=== PATIENT | male | born 1995 | race Caucasian/White ===

== ENCOUNTER 2022-04-06 20:40 | Emergency (ER) | payer OTHER, SELFPAY ==
[2022-04-06 20:41] VITALS: BP 109/81; PULSE 95; RESP 18; TEMP 36.6; O2SAT 98; BMI 28.7
--- NOTE | 2022-04-06 22:59 | CT_ITS ---
STUDY: CT PELVIS WITH CONTRAST REASON FOR EXAM: Male, 26 years old. perianal/rectal pain, eval abscess RADIATION DOSAGE (If Supplied By Facility): CTDIvol = ( 28.21 ) mGy, DLP = ( 1032.15 ) mGycm TECHNIQUE: Transaxial imaging of the pelvis was performed without oral contrast. IV 100mL Isovue-370 was administered intravenously. Individualized dose optimization techniques were used for this CT. COMPARISON: None. FINDINGS: Normal urinary bladder. Normal visualized small intestine. There is a small area of decreased attenuation measuring 0.9 x 1.2 cm in the right perianal region at the level of the external sphincter may represent an abscess. There is no pelvic fluid. There is no pelvic lymphadenopathy or mass lesion. Normal visualized pelvic arteries. Normal abdominal wall. Normal osseous structures. CT/Pelvis WITH IV Contrast IMPRESSION: There is a small area of decreased attenuation measuring 0.9 x 1.2 cm in the right perianal region at the level of the external sphincter may represent an abscess. Electronically Signed: Millie Galvez MD at 0:09 EDT ,
[2022-04-06] MEDS: Clindamycin 600 MG/50 ML BAG 100 MG IV (23:18)
[2022-04-06 23:35] LABS: Anion Gap 6 (5-15); BUN 22 mg/dL (7-18); Calcium,Total 8.8 mg/dL (8.5-10.1); Chloride 105 mmol/L (98-107); Creatinine, Serum 0.84 mg/dL (0.70-1.30); EST Glomerular Filtration Rate 118 mL/min (>60); Est Glom Filt Rate - Afr Amer 142 mL/min (>60); Estimated Creatinine Clearance 140.01 ml/min; Glucose 89 mg/dL (74-106); Potassium 4.2 mmol/L (3.5-5.1); Sodium Level 138 mmol/L (136-145)
[2022-04-06 23:43] LABS: Absolute Lymphocyte Count 1.28 X10^3/uL (0.83-4.51); Absolute Neutrophil Count 4.5 X10^3/uL (2.0-7.7); Basophil# 0.01 X10^3/uL; Basophil% 0.2 % (0-1); Hematocrit 42.5 % (40-54); Hemoglobin 14.6 g/dL (13.0-16.5); Lymphocyte # 1.28 X10^3/ul (0.83-4.51); Lymphocyte % 19.8 % (19-41); Mean Corp Hgb Conc 34.4 g/dL (32-36); Mean Corpuscular Hgb 28.9 pg (27.0-32.0); Mean Platelet Vol. 9.1 fl (6.2-12.0); Monocyte# 0.68 X10^3/uL; Monocyte% 10.5 % (0-10); NRBC Flagged by Analyzer 0 % (0-5); Neutrophil # 4.45 X10^3/uL (2.7-7.7); Neutrophil % 68.6 % (47-70); POSITIVE MORPHOLOGY YES; Platelet Count 217 K/mm3 (150-450); RBC Distribution Width CV 12.4 % (11.6-14.6); RBC Distribution Width SD 37.6 fl (35.1-43.9); Red Blood Count 5.06 M/mm3 (4.6-6.2); White Blood Count 6.5 K/mm3 (4.4-11.0)
[2022-04-06 23:50] LABS: Differential Indicated SCAN CRITERIA MET
[2022-04-07 00:05] LABS: Atypical Lymphocyte 2+ %; Differential Comment SCANNED
--- NOTE | 2022-04-07 00:41 | EX.ED.DYSGE1 ---
HPI History of Present Illness Chief Complaint: Other, Pain/Inj Informant: patient Onset/Context/Timing Onset: Weeks (1) Context: Gradual Onset Timing: Continuous Quality: pain Location: anus/rectum Current Severity: Moderate Maximum Severity: Severe Worsened by: bowel movement Relieved by: nothing Associated Symptoms Associated Symptoms: minor bleeding, mostly w/ BMs Narrative Narrative: 1 weeks were the spontaneous gradual onset of anal pain that has been worsening. States he went to a walk-in clinic and was told he had a hemorrhoid. States pain feels like it is worse. He and his significant other had COVID around 2 months ago and he mostly recovered from that but no other recent illness. Never had this before. No recent constipation or straining, he does lifting at work but nothing crazy heavy. He denies any abdominal pain. He admits he has been having some other discharge from this area that looks mucousy. PFSH PFSH Medical History no medical history no medical history Home Medications amoxicillin 875 mg-potassium clavulanate 125 mg tablet 875 mg PO Q12H #20 TABLETS 04/07/22 [Rx Last Taken Unknown] Allergy/AdvReac Type Severity Reaction Status Date / Time No Known Allergies Allergy Verified 04/06/22 20:43 Social History Smoking Status: Never smoker ROS ROS ED Constitutional Constitutional ED: Denies chills or fever(s) Eyes Eyes: Denies change in vision or diplopia ENT ENT ED: Denies rhinorrhea or sore throat Cardiovascular Cardiovascular: Denies chest pain or palpitations Respiratory/Chest Respiratory/Chest: Denies cough or dyspnea Gastrointestinal Gastrointestinal: Reports as per HPI, hematochezia and other Details: Rectal/anal pain ; Denies abdominal pain, diarrhea, nausea or vomiting Genitourinary Genitourinary ED: Denies dysuria or hematuria Musculoskeletal Musculoskeletal: Denies back pain or neck pain Integumentary Denies abscess or rash Neurologic Neurologic: Denies headache(s), paresthesias or weakness Psychiatric Psychiatric: Denies anxiety or suicidal thoughts EXAM Physical Exam Const Vital Signs: 04/06/22 20:41 04/06/22 22:34 Temperature 97.9 F Temperature Source Temporal Pulse Rate 95 Respiratory Rate 18 Respiratory Effort Normal Non-Labored Blood Pressure 109/81 H Blood Pressure Mean 90 Pulse Ox 98 Oxygen Delivery Method Room Air Positive well nourished and well developed General Appearance ED: well developed and NAD HEENT Reports moist mucous membranes normocephalic and atraumatic Eyes PERRL and EOMs intact bilaterally Neck full ROM and supple Resp normal respiratory effort and clear to auscultation bilaterally Cardio regular rate, regular rhythm and no murmurs GI non-tender and non-distended GI Narrative: On rectal exam, patient has a very tender area that feels like a small perianal abscess at the 3 O'clock side. There is no expressible discharge, there is white-cream that the patient states is Preparation H over the perianal area. There is not appear to be any surrounding cellulitis. Auscultation: normoactive bowel sounds Palpation: soft Back/Spine no CVA tenderness General Back: other FROM Extremity normal to inspection General Extremety ED: Negative for edema, pulses abnormal or tenderness General Extremity: Negative for edema or pulses abnormal Neuro oriented x3, CN's II-XII intact bilaterally and no sensory deficits noted Sensorium / Orientation: awake and alert Motor Exam: strength 5/5 throughout Skin no rashes or lesions noted and no wounds MDM MDM MDM Narrative Medical decision making narrative: I obtained labs and an IV contrasted CT pelvis in order to further evaluate whether this was a simple perianal abscess or involved more proximal tissues. It is consistent with a perianal abscess on CT. Therefore this is amenable to incision and drainage here in the ED by myself, prior to receiving the results of the CT I had the patient get clindamycin 600 mg IV as well as some fluids to flush the contrast. Patient was amenable to the procedure which was done see the note, however was not able to obtain any purulent material call patient was in too much pain to continue, clenching and limiting further drainage. Simple gauze dressing was placed. My plan is to treat him as an outpatient with clindamycin and sitz baths and have him follow-up with surgery if it does not improve. I discussed with Dr. Rodriguez. He is in agreement with this, recommends Augmentin instead of clindamycin, and advises that the patient call the office in the morning, Sunday, to be seen in the office regardless of improvement on Sunday for reevaluation. Lab Data Attestation: I reviewed the patient's lab results. Labs: Laboratory Results - last 24 hr 04/06/22 04/06/22 23:15 23:15 WBC 6.5 RBC 5.06 Hgb 14.6 Hct 42.5 MCV 84.0 MCH 28.9 MCHC 34.4 RDW Std Deviation 37.6 RDW Coeff of Sheryl 12.4 Plt Count 217 MPV 9.1 Immature Gran % (Auto) 0.900 Neut % (Auto) 68.6 Lymph % (Auto) 19.8 [place] % (Auto) 10.5 H Eos % (Auto) 0.0 Baso % (Auto) 0.2 Absolute Neuts (auto) 4.5 Absolute Lymphs (auto) 1.28 Nucleated RBC % 0 Differential Comment SCANNED Diff Path Review May foll Atypical Lymphocytes 2+ Sodium 138 Potassium 4.2 Chloride 105 Carbon Dioxide 27.0 Anion Gap 6 BUN 22 H Creatinine 0.84 Estim Creat Clear Calc 140.01 Est GFR (MDRD) Af Amer 142 Est GFR (MDRD) Non-Af 118 BUN/Creatinine Ratio 26.0 H Glucose 89 Calcium 8.8 Radiography Diagnostic Testing: Clinical Impression(s) from Imaging Studies Pelvis CT 04/06/22 22:59 IMPRESSION: There is a small area of decreased attenuation measuring 0.9 x 1.2 cm in the right perianal region at the level of the external sphincter may represent an abscess. Electronically Signed: Millie Galvez MD at 0:09 EDT , Procedures Other Procedures Procedure(s): Incision and drainage perianal abscess: After informed consent, patient was prepped and draped in a sterile fashion with chlorhexidine, locally anesthetized without aspirating blood, air, or purulent material beforehand with 4 cc plain 1% lidocaine around the tender area right perianal. Verified tender nodular area after anesthetizing, made a small longitudinal incision with a #11 blade, probed bluntly with hemostats unsuccessfully, followed by scissors with no purulent discharge, small amount of bleeding, patient was in pain but otherwise tolerated well and no complications or rectal/anal bleeding. Discharge Plan Triage Chief Complaint: Other, Pain/Inj ED Provider: Keyon Yost Dx/Rx/DC Orders Clinical Impression: Abscess, perianal Instructions: Taking a Sitz Bath, ED ABSCESS Coby-Anal IandD Prescriptions: New amoxicillin-pot clavulanate [amoxicillin-pot clavulanate] 875-125 mg tablet 875 mg PO Q12H Qty: 20 0RF Primary Care Provider: Care Physician,No Primary Referrals: Bladimir Rodriguez MD [Med Staff - Active Staff] - 3-5 Days if not improving Care Physician,No Primary [Primary Care Provider] - Disposition Disposition: Home, Self Care
[2022-04-07] MEDS: Amox/Clavulanate 875 MG Tablet PO (01:52)
[2022-04-07] MEDS: Lidocaine 1% (20 ml mdv) 20 ML Vial INFILT (01:53)
[2022-04-07 01:56] VITALS: BP 136/89; PULSE 72; RESP 18; O2SAT 100
[2022-04-07 12:45] LABS: Pathologist Review Reviewed
== END 2022-04-07 01:57 | disposition home or self-care (01) ==
PROVIDERS: Emergency Provider Emergency Medicine; Visit Provider Emergency Medicine
DX: K61.0 Anal abscess (principal)
CPT/HCPCS: 10060; 72193; 80048; 85025; 96365; 99284; J7030; Q9967; A4216

== ENCOUNTER 2022-04-14 19:42 | Emergency (ER) | payer OTHER, SELFPAY ==
[2022-04-14 19:45] VITALS: BP 121/85; PULSE 126; RESP 18; TEMP 36.9; O2SAT 97; BMI 27.6
[2022-04-14 19:48] VITALS: BP 121/85; PULSE 126; RESP 18; TEMP 36.9; O2SAT 97
[2022-04-14] MEDS: 0.9% Normal Saline 1,000 ML 1000 ML IV (20:35)
[2022-04-14] MEDS: DiphenhydrAMINE 50 MG/ML Syringe IV (20:36)
[2022-04-14 20:44] LABS: Absolute Lymphocyte Count 2.68 X10^3/uL (0.83-4.51); Absolute Neutrophil Count 6.3 X10^3/uL (2.0-7.7); Basophil# 0.02 X10^3/uL; Basophil% 0.2 % (0-1); Hematocrit 42.3 % (40-54); Hemoglobin 14.4 g/dL (13.0-16.5); Lymphocyte # 2.68 X10^3/ul (0.83-4.51); Lymphocyte % 28.2 % (19-41); Mean Corpuscular Hgb 27.9 pg (27.0-32.0); Mean Platelet Vol. 9.4 fl (6.2-12.0); Monocyte# 0.46 X10^3/uL; Monocyte% 4.8 % (0-10); NRBC Flagged by Analyzer 0 % (0-5); Neutrophil # 6.28 X10^3/uL (2.7-7.7); Neutrophil % 66.3 % (47-70); POSITIVE MORPHOLOGY YES; Platelet Count 311 K/mm3 (150-450); RBC Distribution Width CV 12.5 % (11.6-14.6); RBC Distribution Width SD 37.8 fl (35.1-43.9); Red Blood Count 5.16 M/mm3 (4.6-6.2); White Blood Count 9.5 K/mm3 (4.4-11.0)
[2022-04-14 20:48] LABS: Differential Indicated SCAN CRITERIA MET
[2022-04-14 21:01] LABS: Anion Gap 10 (5-15); BUN 17 mg/dL (7-18); BUN/Creat Ratio 22.2 RATIO (10-20); Calcium,Total 8.6 mg/dL (8.5-10.1); Chloride 101 mmol/L (98-107); Creatinine, Serum 0.77 mg/dL (0.70-1.30); EST Glomerular Filtration Rate 132 mL/min (>60); Est Glom Filt Rate - Afr Amer 159 mL/min (>60); Estimated Creatinine Clearance 152.74 ml/min; Glucose 126 mg/dL (74-106); Potassium 3.6 mmol/L (3.5-5.1); Sodium Level 136 mmol/L (136-145)
--- NOTE | 2022-04-14 21:04 | EX.ED.DYSGE1 ---
HPI History of Present Illness Chief Complaint: Allergic Reaction Informant: patient and spouse/S.O. Narrative Narrative: He was seen in other concerns for allergic reaction to Augmentin. Seen 8 days ago for perianal abscess was drained in the ED. He follow-up with surgery today states that is improving. He had some diarrhea. However no diffuse rash in his abdomen and arms over the last 2 days. No lip or tongue swelling. He had an emesis leaving office today. Went home had another 1. Current denies any nausea. Percent other increasing fevers throughout. No urinary symptoms no cough. Denies abdominal pain. States anal pain is improving. Prior similar symptoms: No PFSH PFSH Medical History Perianal abscess Home Medications amoxicillin 875 mg-potassium clavulanate 125 mg tablet tab 04/14/22 [History Last Taken Unknown] clindamycin HCl 150 mg capsule mg 04/14/22 [History Last Taken Unknown] ondansetron 4 mg disintegrating tablet 4 mg PO Q6H PRN nausea and vomiting #10 tabs 04/14/22 [Rx Last Taken Unknown] Allergy/AdvReac Type Severity Reaction Status Date / Time amoxicillin [From Augmentin] AdvReac Rash, Verified 04/14/22 15:50 Diarrhea, Mentally foggy clavulanic acid AdvReac Rash, Verified 04/14/22 15:50 [From Augmentin] Diarrhea, Mentally foggy Social History Smoking Status: Never smoker substance use type: does not use ROS ROS ED Constitutional Constitutional ED: Reports fever(s); Denies chills or sweats Eyes Eyes: Denies change in vision ENT ENT ED: Denies dysphagia or sore throat Cardiovascular Cardiovascular: Denies chest pain, leg edema, palpitations or racing heartbeat Respiratory/Chest Respiratory/Chest: Denies cough, dyspnea or dyspnea on exertion Gastrointestinal Gastrointestinal: Denies abdominal pain, diarrhea, nausea or vomiting Genitourinary Genitourinary ED: Denies dysuria, hematuria or urinary frequency Musculoskeletal Musculoskeletal: Denies back pain, extremity pain or neck pain Integumentary Reports rash; Denies wounds Neurologic Neurologic: Denies headache(s), paresthesias or weakness EXAM Physical Exam Const Vital Signs: 04/14/22 19:45 04/14/22 19:48 04/14/22 21:57 Temperature 98.5 F 98.5 F Temperature Source Oral Oral Pulse Rate 126 H 126 H 76 Respiratory Rate 18 18 17 Blood Pressure 121/85 H 121/85 H Blood Pressure Mean 97 97 Pulse Ox 97 97 98 Oxygen Delivery Method Room Air Room Air Positive well nourished and well developed General Appearance ED: well developed and NAD HEENT Reports moist mucous membranes HEENT Narrative: No lip or tongue swelling airway patent. No stridor. normocephalic and atraumatic Eyes PERRL, EOMs intact bilaterally and conjunctivae normal General Eye ED: Yes normal appearance of both eyes Neck no lymphadenopathy and supple General: Negative for tenderness Chest Wall Chest: Negative for tenderness Resp normal respiratory effort and normal air movement Effort and Inspection: symmetric chest movement; Negative for respiratory distress Cardio regular rate, regular rhythm and no murmurs Peripheral Pulses: pulses 2+ throughout GI normal to inspection, nondistended, normoactive bowel sounds and non-tender Palpation: Negative for guarding or rebound tenderness present Back/Spine no CVA tenderness and no thoracic nor lumbar tenderness Extremity normal to inspection General Extremety ED: Negative for edema or tenderness General Extremity: Negative for edema Neuro oriented x3 and no sensory deficits noted Sensorium / Orientation: awake and alert Skin Skin Narrative: Diffuse rash torso bilateral arms nonraised. No drainage. Nontender. No oral lesions. MDM MDM MDM Narrative Medical decision making narrative: .Patient tachycardic in triage. Reported pruritic rash generalized. No respiratory complaints. Spouse concerns for fevers. He had a heart rate 84 during my exam. There are concerns for dehydration. Labs were drawn given IV fluids given Benadryl for pruritic symptoms. Labs are all normal and monitor remained stable. Discussed stopping antibiotic as he is already on 7 days of treatment should be adequate. He will continue Benadryl as needed prescription for Zofran to his pharmacy use as needed. Heart rate improved with fluids. Outpatient follow-up. All questions were answered. Lab Data Attestation: I reviewed the patient's lab results. Labs: Laboratory Results - last 24 hr 04/14/22 04/14/22 20:37 20:37 WBC 9.5 RBC 5.16 Hgb 14.4 Hct 42.3 MCV 82.0 MCH 27.9 MCHC 34.0 RDW Std Deviation 37.8 RDW Coeff of Sheryl 12.5 Plt Count 311 MPV 9.4 Immature Gran % (Auto) 0.500 Neut % (Auto) 66.3 Lymph % (Auto) 28.2 [place] % (Auto) 4.8 Eos % (Auto) 0.0 Baso % (Auto) 0.2 Absolute Neuts (auto) 6.3 Absolute Lymphs (auto) 2.68 Nucleated RBC % 0 Differential Comment SCANNED Atypical Lymphocytes RARE Sodium 136 Potassium 3.6 Chloride 101 Carbon Dioxide 25.0 Anion Gap 10 BUN 17 Creatinine 0.77 Estim Creat Clear Calc 152.74 Est GFR (MDRD) Af Amer 159 Est GFR (MDRD) Non-Af 132 BUN/Creatinine Ratio 22.2 H Glucose 126 H Calcium 8.6 Discharge Plan Triage Chief Complaint: Allergic Reaction ED Provider: Gilmar Velasco Dx/Rx/DC Orders Clinical Impression: Allergic drug rash, Vomiting, Tachycardia Instructions: ED ADVERSE DRUG REACTION Allergic, ED Vomiting (Adult) Prescriptions: New ondansetron 4 mg tablet,disintegrating 4 mg PO Q6H PRN (Reason: nausea and vomiting) Qty: 10 0RF No Action clindamycin HCl 150 mg capsule amoxicillin-pot clavulanate 875-125 mg tablet Primary Care Provider: Care Physician,No Primary Referrals: Keisha Swift MD [Med Staff - Transformation Consultant] - 1-2 Weeks Care Physician,No Primary [Primary Care Provider] - Activity Restrictions/Additional Instructions: Stop the Augmentin. You been treated for 7 days should be adequate. Continue Benadryl 25 to 50 mg every 6 hours as needed. Disposition Disposition: Home, Self Care Discharge Date/Time: 04/14/22 22:01
[2022-04-14 21:16] LABS: Differential Comment SCANNED
[2022-04-14 21:17] LABS: Atypical Lymphocyte RARE %
[2022-04-14 21:57] VITALS: PULSE 76; RESP 17; O2SAT 98
== END 2022-04-14 22:01 | disposition home or self-care (01) ==
PROVIDERS: Emergency Provider Emergency Medicine; Visit Provider Emergency Medicine
DX: R11.10 Vomiting, unspecified (principal); T36.0X5A Adverse effect of penicillins, initial encounter; R00.0 Tachycardia, unspecified
CPT/HCPCS: 80048; 85025; 96374; 99283; J7030; A4216

== ENCOUNTER 2022-04-23 12:21 | Observation (INO) | payer OTHER, SELFPAY ==
[2022-04-23] VITALS (13 sets, daily range): BP systolic 132–148; BP diastolic 76–125; PULSE 121–156; RESP 12–25; TEMP 36.4–37.1; O2SAT 97–100; BMI 26.2; BMI 26.1
--- NOTE | 2022-04-23 13:39 | ED.RN ---
pt with no real defined problem. reports feeling 'really hot when exert self. unable to do any physical thing or gets hot and sweats and has fever spikes but unsure if corrilated and unable to say if happening at same time each day or evening. was at f/u with surgeon for post abcess drzoya and was all healed up from that but havent been same. unable to work, looking to aunt to answer questions for him. avoids eye contact. figets with hands and looks down. mild sore throat reported. wt loss of 30lbs last month. per aunt supposed to be getting in 8 days. his fiance called and said theres something wrong with him' denies any follow up with pcp dr. gustafson. denies any mental illness
--- NOTE | 2022-04-23 14:37 | EDS_ITS ---
HPI History of Present Illness Chief Complaint: General Illness Informant: patient Onset/Context/Timing Onset: Weeks (3) Context: Gradual Onset Timing: Continuous Quality: Decreased appetite Location: Generalized Worsened by: Nothing Relieved by: DayQuil Narrative Narrative: Patient presents with decreased appetite and weight loss over the last 3 weeks. Patient had a perirectal abscess drained approximately 1 month ago. Patient was placed on amoxicillin after that. Patient developed an allergy to penicillin. Patient states that since his allergic reaction, he has not felt like he wanted to eat. Patient states that the pain and abscess has resolved. Patient admits to subjective fevers and chills. Patient also admits to some night sweats. Patient denies any abdominal pain. Patient denies any nausea or vomiting. Patient states he just does not want to eat anything. Patient states he has had a 30 pound weight loss in the last month. Mother states that she noticed a lymph node on the right side of his neck that is swollen. Patient had a relative with similar symptoms who was diagnosed with mononucleosis in the past. [facility] Medical History Perianal abscess Home Medications amoxicillin 875 mg-potassium clavulanate 125 mg tablet tab 04/14/22 [History Last Taken Unknown] clindamycin HCl 150 mg capsule mg 04/14/22 [History Last Taken Unknown] ondansetron 4 mg disintegrating tablet 4 mg PO Q6H PRN nausea and vomiting #10 tabs 04/14/22 [Rx Last Taken Unknown] Allergy/AdvReac Type Severity Reaction Status Date / Time Iodinated Contrast Media Allergy Intermediate Rash Verified 04/23/22 22:22 Penicillins Allergy Hives Verified 04/23/22 22:22 Sulfa (Sulfonamide Allergy Anaphylaxis Verified 04/23/22 12:25 Antibiotics) amoxicillin [From Augmentin] AdvReac Rash, Verified 04/23/22 22:22 Diarrhea, Mentally foggy clavulanic acid AdvReac Rash, Verified 04/14/22 15:50 [From Augmentin] Diarrhea, Mentally foggy Social History Smoking Status: Never smoker substance use type: does not use ROS ROS ED Constitutional Constitutional ED: Reports chills, fever(s), subjective and sweats Eyes Eyes: Denies blurry vision or change in vision ENT ENT ED: Reports sore throat; Denies rhinorrhea Cardiovascular Cardiovascular: Denies chest pain or palpitations Respiratory/Chest Respiratory/Chest: Reports cough; Denies dyspnea Gastrointestinal Gastrointestinal: Denies nausea or vomiting Genitourinary Genitourinary ED: Denies dysuria or hematuria Musculoskeletal Musculoskeletal: Denies back pain or neck pain Integumentary Reports abscess; Denies rash Neurologic Neurologic: Denies headache(s) or weakness Allergic/Immunologic Allergic/Immunologic ED: Denies mouth swelling or urticaria EXAM Physical Exam Const Vital Signs: 04/23/22 12:22 04/23/22 14:33 04/23/22 15:26 Temperature 97.6 F L 98.5 F Temperature Source Oral Oral Pulse Rate 145 H 129 H Pulse Rate [Lying] Pulse Rate [Sitting (for 1 minute prior to obtaining)] Pulse Rate [Standing (for 1 minute prior to obtaining)] Respiratory Rate 22 H 16 12 Blood Pressure 145/100 H 141/99 H Blood Pressure [Lying] Blood Pressure [Sitting (for 1 minute prior to obtaining)] Blood Pressure [Standing (for 1 minute prior to obtaining)] Blood Pressure Mean 115 113 Blood Pressure Mean [Lying] Blood Pressure Mean [Sitting (for 1 minute prior to obtaining)] Blood Pressure Mean [Standing (for 1 minute prior to obtaining)] Pulse Ox 98 100 Oxygen Delivery Method Room Air Room Air 04/23/22 15:52 04/23/22 17:34 04/23/22 18:58 Temperature 97.8 F Temperature Source Oral Pulse Rate 140 H 129 H Pulse Rate [Lying] 135 H Pulse Rate [Sitting (for 1 minute prior to obtaining)] 137 H Pulse Rate [Standing (for 1 minute prior to obtaining)] 156 H Respiratory Rate 22 H 25 H Blood Pressure 134/84 H 145/91 H Blood Pressure [Lying] 142/92 H Blood Pressure [Sitting (for 1 minute prior to obtaining)] 145/99 H Blood Pressure [Standing (for 1 minute prior to obtaining)] 145/125 H Blood Pressure Mean 100 109 Blood Pressure Mean [Lying] 108 Blood Pressure Mean [Sitting (for 1 minute prior to obtaining)] 114 Blood Pressure Mean [Standing (for 1 minute prior to obtaining)] 131 Pulse Ox 98 99 Oxygen Delivery Method Room Air Room Air 04/23/22 19:31 04/23/22 19:55 04/23/22 20:45 Temperature 98.2 F 98.0 F Temperature Source Temporal Temporal Pulse Rate 121 H 143 H 140 H Pulse Rate [Lying] Pulse Rate [Sitting (for 1 minute prior to obtaining)] Pulse Rate [Standing (for 1 minute prior to obtaining)] Respiratory Rate 18 18 18 Blood Pressure 132/77 H 144/90 H 141/81 H Blood Pressure [Lying] Blood Pressure [Sitting (for 1 minute prior to obtaining)] Blood Pressure [Standing (for 1 minute prior to obtaining)] Blood Pressure Mean 95 108 101 Blood Pressure Mean [Lying] Blood Pressure Mean [Sitting (for 1 minute prior to obtaining)] Blood Pressure Mean [Standing (for 1 minute prior to obtaining)] Pulse Ox 98 100 99 Oxygen Delivery Method Room Air Room Air Room Air 04/23/22 21:47 Temperature 98.8 F Temperature Source Oral Pulse Rate 135 H Pulse Rate [Lying] Pulse Rate [Sitting (for 1 minute prior to obtaining)] Pulse Rate [Standing (for 1 minute prior to obtaining)] Respiratory Rate 19 H Blood Pressure 140/90 H Blood Pressure [Lying] Blood Pressure [Sitting (for 1 minute prior to obtaining)] Blood Pressure [Standing (for 1 minute prior to obtaining)] Blood Pressure Mean 106 Blood Pressure Mean [Lying] Blood Pressure Mean [Sitting (for 1 minute prior to obtaining)] Blood Pressure Mean [Standing (for 1 minute prior to obtaining)] Pulse Ox 99 Oxygen Delivery Method Room Air Positive well nourished and well developed General Appearance ED: well developed HEENT Reports moist mucous membranes Neck supple and no JVD Neck Narrative: There is a tender lymph node along the right anterior cervical chain. There is also a small lymph node on the left that is nontender. Resp normal respiratory effort and clear to auscultation bilaterally Cardio regular rate, regular rhythm and no murmurs GI normal to inspection, nondistended, normoactive bowel sounds Palpation: soft and tender RLQ (Mild) Extremity normal to inspection General Extremety ED: Negative for edema or tenderness General Extremity: Negative for edema Neuro oriented x3, CN's II-XII intact bilaterally and no sensory deficits noted Sensorium / Orientation: alert Motor Exam: strength 5/5 throughout Psych mental status grossly normal Skin no rashes or lesions noted MDM MDM MDM Narrative Medical decision making narrative: Patient was given IV fluids. CBC was within normal limits. Comprehensive metabolic profile showed a slightly elevated AST of 76 and ALT of 147. Total bilirubin and alkaline phosphatase are normal. Anion gap is normal. Lactate is normal. COVID-19 rapid antigen was obtained and was negative. Influenza A and influenza B antigens were obtained and were negative. Garland test was negative. CT scan of the abdomen pelvis was obtained. There is no acute abnormality noted. CTA of the chest was obtained. There is no evidence of pulmonary embolism or aortic dissection. There is no consolidation or pulmonary edema. Heart size is normal. There is no pericardial effusion. There is no sign of right heart strain. This was interpreted by the radiologist and reviewed by myself. Patient still had a persistent tachycardia in the 140s. TSH was ordered. This was within normal limits. Patient still was having persistent tachycardia. Patient was given a dose of adenosine. His heart rate briefly slowed down. There is no underlying dysrhythmia such as atrial fibrillation or atrial flutter. Patient's heart rate went back up into the 140s. Case was discussed with Dr. Horvath from cardiology. He recommended obtaining a tox screen. This was ordered and was negative. Troponin was ordered and was within normal limits. Dr. Horvath felt that the tachycardia was a result of something underlying and did not want to administer any beta-blockers because this would mask his symptoms. Case was discussed with the hospitalist. He stated that he will be into evaluate the patient and determine whether patient needs to be admitted. Lab Data Attestation: I reviewed the patient's lab results. Labs: Laboratory Results - last 24 hr 04/23/22 04/23/22 04/23/22 14:51 14:51 14:51 WBC 9.9 RBC 5.55 Hgb 15.7 Hct 45.4 MCV 81.8 MCH 28.3 MCHC 34.6 RDW Std Deviation 39.2 RDW Coeff of Sheryl 13.2 Plt Count 298 MPV 8.8 Immature Gran % (Auto) 0.300 Neut % (Auto) 36.5 L Lymph % (Auto) 50.3 H Garland % (Auto) 12.5 H Eos % (Auto) 0.1 Baso % (Auto) 0.3 Absolute Neuts (auto) 3.6 Absolute Lymphs (auto) 4.98 H Nucleated RBC % 0 Differential Comment SCANNED Reactive Lymphocytes RARE Sodium 135 L Potassium 3.9 Chloride 101 Carbon Dioxide 28.0 Anion Gap 6 BUN 10 Creatinine 0.77 Estim Creat Clear Calc 152.74 Est GFR (MDRD) Af Amer 158 Est GFR (MDRD) Non-Af 131 BUN/Creatinine Ratio 13.0 Glucose 104 Lactic Acid 1.1 Calcium 8.9 Total Bilirubin 0.70 AST 76 H ALT 147 H Alkaline Phosphatase 52 Troponin I High Sens Total Protein 8.4 H Albumin 4.0 Globulin 4.4 H Albumin/Globulin Ratio 0.9 TSH Urine Opiates Screen Urine Methadone Screen Ur Barbiturates Screen Ur Phencyclidine Scrn Ur Amphetamines Screen MDMA (Ecstasy) Screen U Benzodiazepines Scrn Urine Cocaine Screen U Cannabinoids Screen Ur Drug Screen Comment Monoscreen 04/23/22 04/23/22 04/23/22 14:51 14:51 20:50 WBC RBC Hgb Hct MCV MCH MCHC RDW Std Deviation RDW Coeff of Sheryl Plt Count MPV Immature Gran % (Auto) Neut % (Auto) Lymph % (Auto) Garland % (Auto) Eos % (Auto) Baso % (Auto) Absolute Neuts (auto) Absolute Lymphs (auto) Nucleated RBC % Differential Comment Reactive Lymphocytes Sodium Potassium Chloride Carbon Dioxide Anion Gap BUN Creatinine Estim Creat Clear Calc Est GFR (MDRD) Af Amer Est GFR (MDRD) Non-Af BUN/Creatinine Ratio Glucose Lactic Acid Calcium Total Bilirubin AST ALT Alkaline Phosphatase Troponin I High Sens 6 Total Protein Albumin Globulin Albumin/Globulin Ratio TSH 1.35 Urine Opiates Screen Urine Methadone Screen Ur Barbiturates Screen Ur Phencyclidine Scrn Ur Amphetamines Screen MDMA (Ecstasy) Screen U Benzodiazepines Scrn Urine Cocaine Screen U Cannabinoids Screen Ur Drug Screen Comment Monoscreen Negative 04/23/22 20:50 WBC RBC Hgb Hct MCV MCH MCHC RDW Std Deviation RDW Coeff of Sheryl Plt Count MPV Immature Gran % (Auto) Neut % (Auto) Lymph % (Auto) Garland % (Auto) Eos % (Auto) Baso % (Auto) Absolute Neuts (auto) Absolute Lymphs (auto) Nucleated RBC % Differential Comment Reactive Lymphocytes Sodium Potassium Chloride Carbon Dioxide Anion Gap BUN Creatinine Estim Creat Clear Calc Est GFR (MDRD) Af Amer Est GFR (MDRD) Non-Af BUN/Creatinine Ratio Glucose Lactic Acid Calcium Total Bilirubin AST ALT Alkaline Phosphatase Troponin I High Sens Total Protein Albumin Globulin Albumin/Globulin Ratio TSH Urine Opiates Screen NEGATIVE Urine Methadone Screen NEGATIVE Ur Barbiturates Screen NEGATIVE Ur Phencyclidine Scrn NEGATIVE Ur Amphetamines Screen NEGATIVE MDMA (Ecstasy) Screen NEGATIVE U Benzodiazepines Scrn NEGATIVE Urine Cocaine Screen NEGATIVE U Cannabinoids Screen NEGATIVE Ur Drug Screen Comment Monoscreen Radiography Diagnostic Testing: Clinical Impression(s) from Imaging Studies Abdomen/Pelvis CT 04/23/22 14:42 IMPRESSION: Negative CT of the abdomen and pelvis with intravenous contrast. Electronically Signed: Marcio Robert MD at 17:26 EDT , Chest CTA 04/23/22 15:53 IMPRESSION: Negative CTA chest. Electronically Signed: Marcio Robert MD at 17:28 EDT , EKG Initial EKG: Attestation: I personally reviewed and interpreted this EKG as follows: Interpretation: No Acute Injury Pattern and Sinus Tachycardia (138) Prior EKG tracings: not available for review Prior: No Prior Critical Care Time Critical Care Time: Yes Critical care time (excluding procedures): 30-74 minutes (44), Including time spent:, Discussing w/Patient &/or Family/[employer], Discussing w/Consultants, Arranging Admission or Transfer and Performing Direct Patient Care at Bedside Discharge Plan Dx/Rx/DC Orders Clinical Impression: Tachycardia, Unintentional weight loss Disposition Disposition: Acute Care [facility]
--- NOTE | 2022-04-23 14:42 | CT_ITS ---
EXAM: CT ABDOMEN AND PELVIS WITH INTRAVENOUS CONTRAST CLINICAL INDICATION: Abdominal pain -- IV PO Contrast TECHNIQUE: Helically acquired images were obtained of the abdomen and pelvis with intravenous contrast. This CT exam was performed using one or more of the following dose reduction techniques: automated exposure control, adjustment of the mA and/or kV according to patient size, and/or use of iterative reconstruction technique. This report was created using [employer] report generation technology. CONTRAST: Oral and IV Gastrografin and 100mL Isovue-370 COMPARISON: None. FINDINGS: LOWER THORAX: Unremarkable. Lung bases are clear. No cardiomegaly. No significant pericardial effusion. ABDOMEN: LIVER: Unremarkable. Homogeneous. No focal mass. GALLBLADDER AND BILE DUCTS: Unremarkable. No calcified gallstones. No gallbladder distention or wall edema. No intra- or extrahepatic biliary ductal dilation. PANCREAS: Unremarkable. No focal cystic or solid mass. SPLEEN: Unremarkable. Normal size without focal cystic or solid mass. ADRENALS: Unremarkable. No nodules. KIDNEYS AND URETERS: Unremarkable. Normal renal size and position. No hydronephrosis. STOMACH AND BOWEL: Unremarkable. No stomach or bowel distention. No focal inflammatory change. PELVIS: APPENDIX: No evidence of acute appendicitis. BLADDER: Unremarkable. REPRODUCTIVE: Unremarkable as visualized. No mass. ABDOMEN and PELVIS: INTRAPERITONEAL SPACE: Unremarkable. No ascites or other fluid collection. No free air. BONES/JOINTS: Unremarkable. No suspicious lytic or blastic abnormality. SOFT TISSUES: Unremarkable. No discrete abdominal or pelvic wall hernia. VASCULATURE: Unremarkable. Abdominal aorta is non-dilated. LYMPH NODES: Unremarkable. No enlarged lymph nodes. CT/Abdomen/Pelvis WITH Contrast IMPRESSION: Negative CT of the abdomen and pelvis with intravenous contrast. Electronically Signed: Marcio Robert MD at 17:26 EDT ,
[2022-04-23] MEDS: 0.9% Normal Saline 1,000 ML 1000 ML IV ×3 (14:51→18:16)
[2022-04-23 14:58] LABS: Absolute Lymphocyte Count 4.98 X10^3/uL (0.83-4.51); Absolute Neutrophil Count 3.6 X10^3/uL (2.0-7.7); Basophil# 0.03 X10^3/uL; Basophil% 0.3 % (0-1); Differential Indicated SCAN CRITERIA MET; Eosinophil# 0.01 X10^3/uL; Eosinophils% 0.1 % (0-5); Hematocrit 45.4 % (40-54); Hemoglobin 15.7 g/dL (13.0-16.5); Lymphocyte # 4.98 X10^3/ul (0.83-4.51); Lymphocyte % 50.3 % (19-41); Mean Corp Hgb Conc 34.6 g/dL (32-36); Mean Corpuscular Hgb 28.3 pg (27.0-32.0); Mean Corpuscular Volume 81.8 fL (80-94); Mean Platelet Vol. 8.8 fl (6.2-12.0); Monocyte# 1.24 X10^3/uL; Monocyte% 12.5 % (0-10); NRBC Flagged by Analyzer 0 % (0-5); Neutrophil # 3.62 X10^3/uL (2.7-7.7); Neutrophil % 36.5 % (47-70); POSITIVE MORPHOLOGY YES; Platelet Count 298 K/mm3 (150-450); RBC Distribution Width CV 13.2 % (11.6-14.6); RBC Distribution Width SD 39.2 fl (35.1-43.9); Red Blood Count 5.55 M/mm3 (4.6-6.2); White Blood Count 9.9 K/mm3 (4.4-11.0)
[2022-04-23 15:13] LABS: ALB/GLOB Ratio 0.9 RATIO (0.9-2.4); AST(SGOT) 76 U/L (15-37); Alanine Aminotransfer ALT/SGPT 147 U/L (16-61); Alkaline Phosphatase 52 U/L (45-117); Anion Gap 6 (5-15); BUN 10 mg/dL (7-18); Calcium,Total 8.9 mg/dL (8.5-10.1); Chloride 101 mmol/L (98-107); Creatinine, Serum 0.77 mg/dL (0.70-1.30); EST Glomerular Filtration Rate 131 mL/min (>60); Est Glom Filt Rate - Afr Amer 158 mL/min (>60); Estimated Creatinine Clearance 152.74 ml/min; Globulin 4.4 g/dL (2.2-4.2); Glucose 104 mg/dL (74-106); Potassium 3.9 mmol/L (3.5-5.1); Protein, Total 8.4 g/dL (6.4-8.2); Sodium Level 135 mmol/L (136-145)
[2022-04-23 15:21] LABS: Internal QC Validated? YES +Cl - CLEAR BKGD; Lactic Acid 1.1 mmol/L (0.4-1.9); Monotest Negative (Negative)
[2022-04-23 15:24] LABS: Differential Comment SCANNED
[2022-04-23 15:25] LABS: Reactive Lymphocyte RARE
--- NOTE | 2022-04-23 15:53 | CT_ITS ---
EXAM: CT ANGIOGRAPHY CHEST WITHOUT AND WITH INTRAVENOUS CONTRAST CLINICAL INDICATION: Dyspnea TECHNIQUE: Helically acquired angiography images were obtained of the chest without and with intravenous contrast. This CT exam was performed using one or more of the following dose reduction techniques: automated exposure control, adjustment of the mA and/or kV according to patient size, and/or use of iterative reconstruction technique. This report was created using [employer] report generation technology. MIP reconstructed images were created and reviewed. CONTRAST: Oral and amp; IV Gastrografin and amp; 100mL Isovue-370 COMPARISON: None. FINDINGS: PULMONARY ARTERIES: Unremarkable. Normal in caliber. No evidence of pulmonary embolism. AORTA: Unremarkable. Normal in caliber. No evidence of dissection. GREAT VESSELS OF AORTIC ARCH: Unremarkable. Normal in caliber. No evidence of dissection. LUNGS AND PLEURAL SPACES: Unremarkable. No mass. No consolidation or edema. No pleural effusion or thickening. No pneumothorax. HEART: Unremarkable. Heart size is normal. No pericardial effusion. No signs of right heart strain, ratio of right ventricle to left ventricle measures less than 1. MEDIASTINUM: Unremarkable. No mediastinal or hilar adenopathy. Esophagus is unremarkable. No hiatal hernia. THYROID: Unremarkable. No thyroid lesions. BONES/JOINTS: Unremarkable. No suspicious lytic or blastic abnormality. CT/CTA Chest W/WO Contrast IMPRESSION: Negative CTA chest. Electronically Signed: Marcio Robetr MD at 17:28 EDT ,
--- NOTE | 2022-04-23 17:31 | NURSING ---
aunt called out ant pt with 2 small hives after contrast for cta chest and abd. pt with no other symptoms. dr. moura aware. familia ordered
[2022-04-23] MEDS: DiphenhydrAMINE 50 MG/ML Syringe 25 MG IV (17:32)
--- NOTE | 2022-04-23 17:46 | EKG12_ITS ---
Test Reason : GENERAL ILLNESS Blood Pressure : / mmHG Vent. Rate : 138 BPM Atrial Rate : 138 BPM P-R Int : 144 ms QRS Dur : 084 ms QT Int : 290 ms P-R-T Axes : 066 068 018 degrees QTc Int : 439 ms Sinus tachycardia Otherwise normal ECG Confirmed by EMPERATRIZ ZENG, ROLDAN ([id number]), assistant production editor AARON VELÁZQUEZ ([id number]) on 04/25/2022 1:07:39 PM Referred By: Confirmed By:ROLDAN AWAN MD
[2022-04-23 19:07] LABS: Thyroid Stim Hormone (TSH) 1.35 uIU/mL (0.358-3.74)
[2022-04-23] MEDS: Adenosine 6 MG/2 ML Syringe IV (19:53)
[2022-04-23 21:12] LABS: Amphetamine Urine VISTA NEGATIVE (<1000 ng/mL); Barbiturate Urine VISTA NEGATIVE (< 200 ng/mL); Benzodiazepine Urine VISTA NEGATIVE (< 200 ng/mL); Cocaine Urine VISTA NEGATIVE (< 300 ng/mL); Ecstacy Urine VISTA NEGATIVE (< 500 ng/mL); Methadone Urine VISTA NEGATIVE (< 300 ng/mL); PCP Urine VISTA NEGATIVE (< 25 ng/mL); THC Urine VISTA NEGATIVE (< 50 ng/mL); Vista UDS pH Range 7
[2022-04-23 21:13] LABS: Troponin-I HS 6 pg/mL (3.0-78.0)
--- NOTE | 2022-04-23 22:28 | HP.PCM.HOS_ITS ---
[facility] - General General Date of Service: 04/23/22 Chief Complaint: malaise. [facility] Narrative BRENDA HOLMAN, is a 26 M who presents with malaise, weight loss, lack of appe tite. Patient event experiences about 3 weeks and during this time had a perirectal abscess and was treated with penicillin. He did develop an allergic reaction to penicillin and was instructed to continue to do so and take diphenhydramine to help with the rash. Patient has completed antibiotics and followed up with Dr. Rodriguez on the . He advised probiotic agent at that time. But despite that, he is just not been feeling well, having fevers, sore throat, lack of appetite. He has been taking DayQuil daily but only in the morning. So presented to the emergency room and underwent a work-up including chest CT, CT of the abdomen pelvis as well as other labs which were unremarkable except for some mild elevation in his AST and ALT. He did have a Monospot that was negative, COVID and flu antigens are negative. He denies any history of IV drug abuse or any HIV risk factors. The hospital service was contacted for admission as patient has been tachycardic during the ER visit. While in the ER he did receive adenosine which slowed down his rhythm to but there is no underlying A. fib or a flutter. Patient did have a CAT scan with contrast and afterwards, developed urticaria. He received Benadryl and IV fluids and his urticaria has resolved though he still does have a rash. [facility] Medical History Perianal abscess Home Medications amoxicillin 875 mg-potassium clavulanate 125 mg tablet tab 04/14/22 [History Last Taken Unknown] clindamycin HCl 150 mg capsule mg 04/14/22 [History Last Taken Unknown] ondansetron 4 mg disintegrating tablet 4 mg PO Q6H PRN nausea and vomiting #10 tabs 04/14/22 [Rx Last Taken Unknown] Allergy/AdvReac Type Severity Reaction Status Date / Time Iodinated Contrast Media Allergy Intermediate Rash Verified 04/23/22 22:22 Penicillins Allergy Hives Verified 04/23/22 22:22 Sulfa (Sulfonamide Allergy Anaphylaxis Verified 04/23/22 12:25 Antibiotics) amoxicillin [From Augmentin] AdvReac Rash, Verified 04/23/22 22:22 Diarrhea, Mentally foggy clavulanic acid AdvReac Rash, Verified 04/14/22 15:50 [From Augmentin] Diarrhea, Mentally foggy Family History (Updated 04/23/22 @ 22:[address] Da Mueller DO) Other Penicillin allergy Social History Smoking Status: Never smoker substance use type: does not use ROS ROS Narrative Patient does have a lymph node in his right posterior neck. All review of systems were negative except as mentioned above in the history of present illness and the other review of systems. Vital Signs Vital Signs Vital Signs: 04/23/22 12:22 04/23/22 14:33 04/23/22 15:26 Temperature 36.4 C L 36.9 C Temperature Source Oral Oral Pulse Rate 145 H 129 H Pulse Rate [Lying] Pulse Rate [Sitting (for 1 minute prior to obtaining)] Pulse Rate [Standing (for 1 minute prior to obtaining)] Respiratory Rate 22 H 16 12 Blood Pressure 145/100 H 141/99 H Blood Pressure [Lying] Blood Pressure [Sitting (for 1 minute prior to obtaining)] Blood Pressure [Standing (for 1 minute prior to obtaining)] Blood Pressure Mean 115 113 Blood Pressure Mean [Lying] Blood Pressure Mean [Sitting (for 1 minute prior to obtaining)] Blood Pressure Mean [Standing (for 1 minute prior to obtaining)] Pulse Ox 98 100 Oxygen Delivery Method Room Air Room Air 04/23/22 15:52 04/23/22 17:34 04/23/22 18:58 Temperature 36.6 C Temperature Source Oral Pulse Rate 140 H 129 H Pulse Rate [Lying] 135 H Pulse Rate [Sitting (for 1 minute prior to obtaining)] 137 H Pulse Rate [Standing (for 1 minute prior to obtaining)] 156 H Respiratory Rate 22 H 25 H Blood Pressure 134/84 H 145/91 H Blood Pressure [Lying] 142/92 H Blood Pressure [Sitting (for 1 minute prior to obtaining)] 145/99 H Blood Pressure [Standing (for 1 minute prior to obtaining)] 145/125 H Blood Pressure Mean 100 109 Blood Pressure Mean [Lying] 108 Blood Pressure Mean [Sitting (for 1 minute prior to obtaining)] 114 Blood Pressure Mean [Standing (for 1 minute prior to obtaining)] 131 Pulse Ox 98 99 Oxygen Delivery Method Room Air Room Air 04/23/22 19:31 04/23/22 19:55 04/23/22 20:45 Temperature 36.8 C 36.7 C Temperature Source Temporal Temporal Pulse Rate 121 H 143 H 140 H Pulse Rate [Lying] Pulse Rate [Sitting (for 1 minute prior to obtaining)] Pulse Rate [Standing (for 1 minute prior to obtaining)] Respiratory Rate 18 18 18 Blood Pressure 132/77 H 144/90 H 141/81 H Blood Pressure [Lying] Blood Pressure [Sitting (for 1 minute prior to obtaining)] Blood Pressure [Standing (for 1 minute prior to obtaining)] Blood Pressure Mean 95 108 101 Blood Pressure Mean [Lying] Blood Pressure Mean [Sitting (for 1 minute prior to obtaining)] Blood Pressure Mean [Standing (for 1 minute prior to obtaining)] Pulse Ox 98 100 99 Oxygen Delivery Method Room Air Room Air Room Air 04/23/22 21:47 Temperature 37.1 C Temperature Source Oral Pulse Rate 135 H Pulse Rate [Lying] Pulse Rate [Sitting (for 1 minute prior to obtaining)] Pulse Rate [Standing (for 1 minute prior to obtaining)] Respiratory Rate 19 H Blood Pressure 140/90 H Blood Pressure [Lying] Blood Pressure [Sitting (for 1 minute prior to obtaining)] Blood Pressure [Standing (for 1 minute prior to obtaining)] Blood Pressure Mean 106 Blood Pressure Mean [Lying] Blood Pressure Mean [Sitting (for 1 minute prior to obtaining)] Blood Pressure Mean [Standing (for 1 minute prior to obtaining)] Pulse Ox 99 Oxygen Delivery Method Room Air Weight Weight: 82.7 kg Body Mass Index (BMI) 26.2 Physical Exam Const alert, no apparent distress and average body habitus HEENT normocephalic and head/scalp atraumatic Eyes Eyes Narrative: No icterus Neck Neck Narrative: Right posterior lymphadenopathy Resp normal respiratory effort, no retractions, no use of accessory muscles and clear to auscultation bilaterally Cardio regular rate, regular rhythm, S1 normal heart sound and S2 normal heart sound GI normal to inspection, nondistended, normoactive bowel sounds, soft to palpation, non-tender and non-distended Extremity normal to inspection and no clubbing, cyanosis or edema Skin Skin Narrative: Macular rash involving his back and torso. Neuro moves all extremities and no focal motor deficits Psych affect normal Results Lab / Micro Data Attestation: I reviewed the patient's lab results. Result Diagrams: 10/30/22 14:51 04/23/22 14:51 Labs: Laboratory Results - last 24 hr 04/23/22 14:51: WBC 9.9, RBC 5.55, Hgb 15.7, Hct 45.4, MCV 81.8, MCH 28.3, MCHC 34.6, RDW Std Deviation 39.2, RDW Coeff of Sheryl 13.2, Plt Count 298, MPV 8.8, Immature Gran % (Auto) 0.300, Neut % (Auto) 36.5 L, Lymph % (Auto) 50.3 H, [place] % (Auto) 12.5 H, Eos % (Auto) 0.1, Baso % (Auto) 0.3, Absolute Neuts (auto) 3.6, Absolute Lymphs (auto) 4.98 H, Nucleated RBC % 0, Differential Comment SCANNED, Reactive Lymphocytes RARE 04/23/22 14:51: Sodium 135 L, Potassium 3.9, Chloride 101, Carbon Dioxide 28.0, Anion Gap 6, BUN 10, Creatinine 0.77, Estim Creat Clear Calc 152.74, Est GFR (MDRD) Af Amer 158, Est GFR (MDRD) Non-Af 131, BUN/Creatinine Ratio 13.0, Glucose 104, Calcium 8.9, Total Bilirubin 0.70, AST 76 H, ALT 147 H, Alkaline Phosphatase 52, Total Protein 8.4 H, Albumin 4.0, Globulin 4.4 H, Albumin/Globulin Ratio 0.9 04/23/22 14:51: Lactic Acid 1.1 04/23/22 14:51: Monoscreen Negative 04/23/22 14:51: TSH 1.35 04/23/22 20:50: Troponin I High Sens 6 04/23/22 20:50: Urine Opiates Screen NEGATIVE, Urine Methadone Screen NEGATIVE, Ur Barbiturates Screen NEGATIVE, Ur Phencyclidine Scrn NEGATIVE, Ur Amphetamines Screen NEGATIVE, MDMA (Ecstasy) Screen NEGATIVE, U Benzodiazepines Scrn NEGATIVE, Urine Cocaine Screen NEGATIVE, U Cannabinoids Screen NEGATIVE, Ur Drug Screen Comment Micro: Microbiology 04/23/22 14:50 Nasal Secretion SARS-CoV-2 & FLU Antigen (Rapid) - Final EKG Initial EKG: Attestation: I personally reviewed and interpreted this EKG as follows: Prior EKG tracings: available for review EKG Rhythm Intrepretation: Sinus Tachycardia Radiology Impression Abdomen/Pelvis CT 04/23/22 14:42 IMPRESSION: Negative CT of the abdomen and pelvis with intravenous contrast. Electronically Signed: Marcio Robert MD at 17:26 EDT , Chest CTA 04/23/22 15:53 IMPRESSION: Negative CTA chest. Electronically Signed: Marcio Robert MD at 17:28 EDT , Assessment & Plan Assessment/Plan (1) Tachycardia: PLAN: Suspect reactive due to what ever illness he is experiencing. Patient had a perirectal abscess but that is since resolved but he is also sounds like he has been dealing with another illness. His rapid mono is rapid COVID and influenza were negative. His AST and ALT are slightly elevated which still leads me to be concerned about him having mononucleosis so we will check an IgM plus also check CMV as well as a respiratory panel. Hold off on treatment at this time Cannot rule out cardiomyopathy so we will check an echocardiogram ED reached out to cardiology but will hold off on consultation at this time depending on what transpires. Patient has been taking DayQuil but only daily and will feel that the phenylephrine is the leading cause of his persistent tachycardia (2) Unintentional weight loss: PLAN: May be related with underlying illness as mentioned above. Supportive management PLAN: Plan Allergies: Patient with allergic reaction to CT contrast now as well as penicillin. Recommend that he follow-up with an radio engineer as outpatient. VTE prophylaxis: Low risk given observation status. Disposition: To be determined. Patient being brought in under observation status. Did discuss with the patient's mother at bedside that he will be brought in under observation status not admission because at this point time we are just doing testing. I did tell her that could change depending on the findings and if we do need to treat him with IV medications and so forth. She expressed understanding. Charges/Coding Visit Charges OBSV E&M: 76230 Initial observation care L3
--- NOTE | 2022-04-23 22:28 | ECHOD_ITS ---
Reason For Study: TACHYCARDIA Procedure This was a 2D Doppler, Color Flow transthoracic echocardiogram. Exam performed portable in patient room. Left Ventricle Normal LV size. Left ventricular systolic function is normal. The estimated ejection fraction is 60 %. No regional wall motion abnormalities noted. Right Ventricle Normal RV size. Normal systolic function. Atria Normal left atrium. Normal right atrium. Mitral Valve Normal mitral valve. Tricuspid Valve Normal tricuspid valve. Aortic Valve Normal aortic valve. Trisinus/trileaflet aortic valve. Pulmonic Valve Normal pulmonic valve. Great Vessels Normal aortic root. The pulmonary artery is normal size. Normal inferior vena cava. Pericardium/Pleural No pericardial effusion. MMode/2D Measurements & Calculations LVIDd: 4.6 cm IVSd: 1.1 cm Ao root diam: 2.9 cm LVIDs: 3.0 cm LVPWd: 1.2 cm FS: 35.3 % LAV(MOD-sp4): 26.1 ml LVAd ap4: 23.2 cm2 SV(MOD-sp4): 42.2 ml LVLd ap4: 8.2 cm EDV(MOD-sp4): 55.2 ml EDV(sp4-el): 55.8 ml LVAs ap4: 9.6 cm2 LVLs ap4: 6.6 cm ESV(MOD-sp4): 13.1 ml ESV(sp4-el): 11.8 ml EF(MOD-sp4): 76.3 % EF(sp4-el): 78.8 % SV(sp4-el): 44.0 ml LA A4 area: 12.2 cm2 LA dimension(2D): 3.3 cm RA A4 area: 15.4 cm2 Doppler Measurements & Calculations MV E max dominick: 112.0 cm/sec Ao V2 max: 154.6 cm/sec LV V1 max: 138.4 cm/sec Ao max P.6 mmHg LV V1 max P.7 mmHg Ao V2 mean: 106.5 cm/sec LV V1 mean P.3 mmHg Ao mean P.2 mmHg LV V1 mean: 83.8 cm/sec Ao V2 VTI: 22.8 cm LV V1 VTI: 14.6 cm PA V2 max: 158.1 cm/sec PA V2 mean: 123.1 cm/sec ECHO/Echo Complete Interpretation Summary Normal LV size. Left ventricular systolic function is normal. The estimated ejection fraction is 60 %. Structurally normal valves. Ordering Physician: Da Mueller Referring Physician: KODI PCP Performed By: Yenni Ramos RCS
[2022-04-23] MEDS: 0.9% Normal Saline 1,000 ML 150 ML IV (23:27)
[2022-04-24] VITALS (10 sets, daily range): BP systolic 125–157; BP diastolic 80–90; PULSE 104–136; RESP 16–18; TEMP 36.2–37.2; O2SAT 96–100
[2022-04-24] LABS: Troponin-I HS 6 pg/mL (3.0-78.0)
[2022-04-24 04:06] LABS: Absolute Lymphocyte Count 4.06 X10^3/uL (0.83-4.51); Absolute Neutrophil Count 2.4 X10^3/uL (2.0-7.7); Basophil# 0.06 X10^3/uL; Basophil% 0.8 % (0-1); Eosinophil# 0.08 X10^3/uL; Hematocrit 36.3 % (40-54); Hemoglobin 12.6 g/dL (13.0-16.5); Lymphocyte # 4.06 X10^3/ul (0.83-4.51); Lymphocyte % 52.8 % (19-41); Mean Corp Hgb Conc 34.7 g/dL (32-36); Mean Corpuscular Hgb 28.5 pg (27.0-32.0); Mean Corpuscular Volume 82.1 fL (80-94); Mean Platelet Vol. 9.1 fl (6.2-12.0); Monocyte# 1.03 X10^3/uL; Monocyte% 13.4 % (0-10); NRBC Flagged by Analyzer 0 % (0-5); Neutrophil # 2.44 X10^3/uL (2.7-7.7); Neutrophil % 31.7 % (47-70); POSITIVE MORPHOLOGY YES; Platelet Count 241 K/mm3 (150-450); RBC Distribution Width CV 13.3 % (11.6-14.6); RBC Distribution Width SD 40.1 fl (35.1-43.9); Red Blood Count 4.42 M/mm3 (4.6-6.2); White Blood Count 7.7 K/mm3 (4.4-11.0)
[2022-04-24 04:12] LABS: Differential Indicated SCAN CRITERIA MET
[2022-04-24 05:08] LABS: Differential Comment SCANNED; Reactive Lymphocyte 1+
[2022-04-24] MEDS: 0.9% Normal Saline 1,000 ML 150 ML IV ×3 (06:09→19:29)
[2022-04-24 06:14] LABS: Troponin-I HS 6 pg/mL (3.0-78.0)
--- NOTE | 2022-04-24 07:40 | PCM.PN.HOSP ---
Subjective Subjective Patient is a 26-year-old gentleman who presented to the emergency department presented to the emergency department with increasing fatigue decreased appetite as well as unintentional weight loss for a month. Patient had apparently been seen in the emergency department with perirectal abscess had I&D done. Was treated with penicillin which he developed allergic reaction after 7 days of therapy. Patient was found to have significant tachycardia on admission admitted to monitored bed for further management Objective Data Objective Data Vital Signs: Vital Signs Temp Pulse Resp BP Pulse Ox O2 Del Method 97.2 F L 136 H 18 125/83 H 98 Room Air 04/24/22 06:01 04/24/22 06:01 04/24/22 06:01 04/24/22 06:01 04/24/22 06:01 04/24/22 06:01 Oxygen Delivery Method Room Air Weight: 82.6 kg Body Mass Index (BMI) 26.1 Intake & Output: Intake and Output for Last 24 Hours 04/22/22 04/23/22 04/24/22 23:59 23:59 23:59 Intake Total 3000 / 3000 1240 / 1240 Balance 3000 / 3000 1240 / 1240 Lab / Micro Data Result Diagrams: 04/24/22 03:24 04/24/22 03:24 Labs: Laboratory Results - last 24 hr 04/23/22 14:51: WBC 9.9, RBC 5.55, Hgb 15.7, Hct 45.4, MCV 81.8, MCH 28.3, MCHC 34.6, RDW Std Deviation 39.2, RDW Coeff of Sheryl 13.2, Plt Count 298, MPV 8.8, Immature Gran % (Auto) 0.300, Neut % (Auto) 36.5 L, Lymph % (Auto) 50.3 H, [place] % (Auto) 12.5 H, Eos % (Auto) 0.1, Baso % (Auto) 0.3, Absolute Neuts (auto) 3.6, Absolute Lymphs (auto) 4.98 H, Nucleated RBC % 0, Differential Comment SCANNED, Reactive Lymphocytes RARE 04/23/22 14:51: Sodium 135 L, Potassium 3.9, Chloride 101, Carbon Dioxide 28.0, Anion Gap 6, BUN 10, Creatinine 0.77, Estim Creat Clear Calc 152.74, Est GFR (MDRD) Af Amer 158, Est GFR (MDRD) Non-Af 131, BUN/Creatinine Ratio 13.0, Glucose 104, Calcium 8.9, Total Bilirubin 0.70, AST 76 H, ALT 147 H, Alkaline Phosphatase 52, Total Protein 8.4 H, Albumin 4.0, Globulin 4.4 H, Albumin/Globulin Ratio 0.9 04/23/22 14:51: Lactic Acid 1.1 04/23/22 14:51: Monoscreen Negative 04/23/22 14:51: TSH 1.35 04/23/22 20:50: Troponin I High Sens 6 04/23/22 20:50: Urine Opiates Screen NEGATIVE, Urine Methadone Screen NEGATIVE, Ur Barbiturates Screen NEGATIVE, Ur Phencyclidine Scrn NEGATIVE, Ur Amphetamines Screen NEGATIVE, MDMA (Ecstasy) Screen NEGATIVE, U Benzodiazepines Scrn NEGATIVE, Urine Cocaine Screen NEGATIVE, U Cannabinoids Screen NEGATIVE, Ur Drug Screen Comment 04/23/22 23:30: Troponin I High Sens 6 04/24/22 03:24: WBC 7.7, RBC 4.42 L, Hgb 12.6 L, Hct 36.3 L, MCV 82.1, MCH 28.5, MCHC 34.7, RDW Std Deviation 40.1, RDW Coeff of Sheryl 13.3, Plt Count 241, MPV 9.1, Immature Gran % (Auto) 0.300, Neut % (Auto) 31.7 L, Lymph % (Auto) 52.8 H, [place] % (Auto) 13.4 H, Eos % (Auto) 1.0, Baso % (Auto) 0.8, Absolute Neuts (auto) 2.4, Absolute Lymphs (auto) 4.06, Nucleated RBC % 0, Differential Comment SCANNED, Reactive Lymphocytes 1+ 04/24/22 03:24: Troponin I High Sens 6 Micro: Microbiology 04/23/22 23:40 Mucosa - Nasopharyngeal Respiratory Panel (PCR) - Final 04/23/22 14:50 Nasal Secretion SARS-CoV-2 & FLU Antigen (Rapid) - Final Radiography Diagnostic Testing: Radiology Impression Abdomen/Pelvis CT 04/23/22 14:42 IMPRESSION: Negative CT of the abdomen and pelvis with intravenous contrast. Electronically Signed: Marcio Robert MD at 17:26 EDT , Chest CTA 04/23/22 15:53 IMPRESSION: Negative CTA chest. Electronically Signed: Marcio Robert MD at 17:28 EDT , Physical Exam Narrative GENERAL: cooperative HEENT: Atraumatic; normocephalic EYES; Anicteric, Normal Conjunctiva NECK; supple, normal thyroid, RESPIRATORY: Diminished to auscultation CARDIOVASCULAR: Regular S1 S2, tachycardic GI: soft, normoactive bowel sounds, : No Renal angle tenderness; EXTREMITIES: No edema, no clubbing, MUSCULOSKELETAL: no muscle wasting NEURO: Awake; no lateralizing signs. SKIN: No Rash PSYCH; Flat affect Assessment & Plan Assessment/Plan (1) Tachycardia: (2) Unintentional weight loss: PLAN: Plan Patient is a 26-year-old gentleman who presented to the emergency department presented to the emergency department with increasing fatigue decreased appetite as well as unintentional weight loss for a month. Patient had apparently been seen in the emergency department with perirectal abscess had I&D done. Was treated with penicillin which he developed allergic reaction after 7 days of therapy. Patient was found to have significant tachycardia on admission admitted to monitored bed for further management 1. Sinus tachycardia ? Etiology not clear at this point. Apart from abnormal LFTs on admission patient work-up was essentially unremarkable. Has been admitted to telemetry for continuous monitoring. Please rapid mono and COVID and influenza in the ED were negative. Assay sent for HIV CMV as well as acute hepatitis panel started on IV fluids. Echo ordered to rule out cardiomyopathy. Patient's family requesting cardiology consultation at this point did explain to patient and family cardiology consult will be obtained if any abnormalities found on his echo. Patient has apparently been taking DayQuil (phenylephrine) on a daily basis and was felt on admission that this could be the cause of his persistent tachycardia 2. Abnormal LFTs ? Etiology not clear requested for acute otitis panel 3. Recent perirectal abscess ? Patient had I&D followed by 7-day course of antibiotics 4. DVT prophylaxis ? Low risk encourage early ambulation Charges/Coding Visit Charges OBSV E&M: 00012 Subsequent observation care L3
[2022-04-24 07:44] LABS: ALB/GLOB Ratio 0.9 RATIO (0.9-2.4); AST(SGOT) 61 U/L (15-37); Alanine Aminotransfer ALT/SGPT 118 U/L (16-61); Albumin, Serum 3.1 g/dL (3.2-5.0); Alkaline Phosphatase 41 U/L (45-117); Anion Gap 5 (5-15); BUN 7 mg/dL (7-18); BUN/Creat Ratio 13.1 RATIO (10-20); Calcium,Total 7.7 mg/dL (8.5-10.1); Chloride 106 mmol/L (98-107); Creatinine, Serum 0.54 mg/dL (0.70-1.30); EST Glomerular Filtration Rate 199 mL/min (>60); Est Glom Filt Rate - Afr Amer 241 mL/min (>60); Globulin 3.3 g/dL (2.2-4.2); Glucose 89 mg/dL (74-106); Protein, Total 6.4 g/dL (6.4-8.2); Sodium Level 136 mmol/L (136-145)
[2022-04-24 12:07] LABS: D-Dimer Quantitative (DVT/PE) 0.42 FEU/ug/m (0.27-0.49)
[2022-04-24 13:19] LABS: HIV - WCH Preliminary Reactive (Nonreactive)
[2022-04-25] VITALS (9 sets, daily range): BP systolic 142–156; BP diastolic 85–90; PULSE 100–151; RESP 16; TEMP 36.4–37; O2SAT 97–100
[2022-04-25] MEDS: 0.9% Normal Saline 1,000 ML 150 ML IV ×2 (02:09→08:01)
[2022-04-25 06:07] LABS: Absolute Lymphocyte Count 3.78 X10^3/uL (0.83-4.51); Absolute Neutrophil Count 2.9 X10^3/uL (2.0-7.7); Basophil# 0.05 X10^3/uL; Basophil% 0.7 % (0-1); Eosinophil# 0.01 X10^3/uL; Eosinophils% 0.1 % (0-5); Hematocrit 37.9 % (40-54); Hemoglobin 13.1 g/dL (13.0-16.5); Lymphocyte # 3.78 X10^3/ul (0.83-4.51); Lymphocyte % 49.5 % (19-41); Mean Corp Hgb Conc 34.6 g/dL (32-36); Mean Corpuscular Hgb 28.2 pg (27.0-32.0); Mean Corpuscular Volume 81.5 fL (80-94); Mean Platelet Vol. 8.7 fl (6.2-12.0); Monocyte% 11.8 % (0-10); NRBC Flagged by Analyzer 0 % (0-5); Neutrophil # 2.88 X10^3/uL (2.7-7.7); Neutrophil % 37.8 % (47-70); POSITIVE MORPHOLOGY YES; Platelet Count 210 K/mm3 (150-450); RBC Distribution Width CV 13.2 % (11.6-14.6); RBC Distribution Width SD 39.5 fl (35.1-43.9); Red Blood Count 4.65 M/mm3 (4.6-6.2); White Blood Count 7.6 K/mm3 (4.4-11.0)
[2022-04-25 06:08] LABS: HEPATITIS B SURFACE AG Negative (Negative); Hep C Antibodies <0.1 s/co ratio (0.0-0.9); Hepatitis A IgM Antibody Negative (Negative); Hepatitis B Core AB IgM Negative (Negative)
[2022-04-25 06:13] LABS: Differential Indicated SCAN CRITERIA MET
[2022-04-25 06:34] LABS: AST(SGOT) 59 U/L (15-37); Alanine Aminotransfer ALT/SGPT 111 U/L (16-61); Albumin, Serum 3.1 g/dL (3.2-5.0); Alkaline Phosphatase 42 U/L (45-117); Anion Gap 5 (5-15); Atypical Lymphocyte 1+ %; BUN 7 mg/dL (7-18); BUN/Creat Ratio 12.3 RATIO (10-20); Bilirubin, Direct 0.15 mg/dL (0.00-0.30); Calcium,Total 8.2 mg/dL (8.5-10.1); Chloride 106 mmol/L (98-107); Creatinine, Serum 0.57 mg/dL (0.70-1.30); EST Glomerular Filtration Rate 185 mL/min (>60); Est Glom Filt Rate - Afr Amer 224 mL/min (>60); Estimated Creatinine Clearance 206.34 ml/min; Globulin 3.6 g/dL (2.2-4.2); Glucose 90 mg/dL (74-106); Magnesium 2.2 mg/dL (1.6-2.6); Phosphorus 2.8 mg/dL (2.5-4.9); Potassium 3.8 mmol/L (3.5-5.1); Protein, Total 6.7 g/dL (6.4-8.2); Sodium Level 136 mmol/L (136-145)
--- NOTE | 2022-04-25 10:30 | PN.HOSP_ITS ---
Subjective Subjective Patient seen still remains tachycardic. His work-up is so far positive for a preliminary reactive HIV test. Confirmatory test sent results pending. Case discussed with patient. Consult placed to infectious disease. Objective Data Objective Data Vital Signs: Vital Signs Temp Pulse Resp BP Pulse Ox O2 Del Method 97.6 F L 130 H 16 151/85 H 100 Room Air 04/25/22 08:54 04/25/22 08:54 04/25/22 08:54 04/25/22 08:54 04/25/22 08:54 04/25/22 08:54 Oxygen Delivery Method Room Air Weight: 82.6 kg Body Mass Index (BMI) 26.1 Intake & Output: Intake and Output for Last 24 Hours 04/23/22 04/24/22 04/25/22 23:59 23:59 23:59 Intake Total 3000 / 3000 4610.0 / 4610.0 2042.5 / 2042.5 Balance 3000 / 3000 4610.0 / 4610.0 2042.5 / 2042.5 Medical Nutrition Assessment Dietitian: Malnutrition Criteria Met Start: 04/24/22 14:00 Freq: Status: Active Protocol: Document 04/24/22 14:00 (Rec: 04/24/22 14:00 [id number]) Nutrition Malnutrition Evidence of Malnutrition Exists Yes Malnutrition (severe): Acute Illness/Injury Evidenced By Suboptimal Energy Intake ( Severe),Weight Loss (Severe) Clinical Problem Acute Disease or Injury Related Malnutrition Etiology severe related to suboptimal appetite Signs/Symptoms as evidenced by 8.9% weight loss in 3 weeks and <75% PO intake of estimated energy needs for 3 weeks. Status Active Problem Recommendation Dietitian Recommendations/Changes Continue Regular diet with Ensure Plus High Protein supplements to optimize oral intakes and provide supplemental energy. Lab / Micro Data Result Diagrams: 04/25/22 05:50 04/25/22 05:50 Labs: Laboratory Results - last 24 hr 04/24/22 10:57: HIV 1&2 Antibody Preliminary Reactive H 04/24/22 11:51: D-Dimer Quant (PE/DVT) 0.42 04/25/22 05:50: WBC 7.6, RBC 4.65, Hgb 13.1, Hct 37.9 L, MCV 81.5, MCH 28.2, MCHC 34.6, RDW Std Deviation 39.5, RDW Coeff of Sheryl 13.2, Plt Count 210, MPV 8.7, Immature Gran % (Auto) 0.100, Neut % (Auto) 37.8 L, Lymph % (Auto) 49.5 H, [place] % (Auto) 11.8 H, Eos % (Auto) 0.1, Baso % (Auto) 0.7, Absolute Neuts (auto) 2.9, Absolute Lymphs (auto) 3.78, Nucleated RBC % 0, Atypical Lymphocytes 1+ 04/25/22 05:50: Sodium 136, Potassium 3.8, Chloride 106, Carbon Dioxide 25.0, Anion Gap 5, BUN 7, Creatinine 0.57 L, Estim Creat Clear Calc 206.34, Est GFR (MDRD) Af Amer 224, Est GFR (MDRD) Non-Af 185, BUN/Creatinine Ratio 12.3, Glucose 90, Calcium 8.2 L, Phosphorus 2.8, Magnesium 2.2, Total Bilirubin 0.50, Direct Bilirubin 0.15, AST 59 H, ALT 111 H, Alkaline Phosphatase 42 L, Total Protein 6.7, Albumin 3.1 L, Globulin 3.6 Micro: Microbiology 04/23/22 23:40 Mucosa - Nasopharyngeal Respiratory Panel (PCR) - Final 04/23/22 14:50 Nasal Secretion SARS-CoV-2 & FLU Antigen (Rapid) - Final Radiography Diagnostic Testing: Radiology Impression Echocardiogram 04/23/22 22:28 Interpretation Summary Normal LV size. Left ventricular systolic function is normal. The estimated ejection fraction is 60 %. Structurally normal valves. Ordering Physician: Da Mueller Referring Physician: NO PCP Performed By: Yenni Ramos RCS Physical Exam Narrative GENERAL: cooperative HEENT: Atraumatic; normocephalic EYES; Anicteric, Normal Conjunctiva NECK; supple, normal thyroid, RESPIRATORY: Diminished to auscultation CARDIOVASCULAR: Regular S1 S2, tachycardic GI: soft, normoactive bowel sounds, : No Renal angle tenderness; EXTREMITIES: No edema, no clubbing, MUSCULOSKELETAL: no muscle wasting NEURO: Awake; no lateralizing signs. SKIN: No Rash PSYCH; Flat affect Assessment & Plan Assessment/Plan (1) Tachycardia: (2) Unintentional weight loss: PLAN: Plan Patient is a 26-year-old gentleman who presented to the emergency department presented to the emergency department with increasing fatigue decreased appetite as well as unintentional weight loss for a month. Patient had apparently been seen in the emergency department with perirectal abscess had I&D done. Was tr eated with penicillin which he developed allergic reaction after 7 days of therapy. Patient was found to have significant tachycardia on admission admitted to monitored bed for further management 1. Sinus tachycardia ? Etiology not clear at this point. Apart from abnormal LFTs on admission patie nt work-up was essentially unremarkable. Has been admitted to telemetry for continuous monitoring. Please rapid mono and COVID and influenza in the ED were negative. Assay sent for HIV CMV as well as acute hepatitis panel started on IV fluids. Echo ordered to rule out cardiomyopathy. Patient's family requesting cardiology consultation at this point did explain to patient and family cardiology consult will be obtained if any abnormalities found on his echo. Patient has apparently been taking DayQuil (phenylephrine) on a daily basis and was felt on admission that this could be the cause of his persistent tachycardia ? 04/25/2022 2D echo unremarkable 2. Abnormal LFTs ? Etiology not clear requested for acute hepatitis panel ? 04/25/2022 patient LFTs trending in the right direction 3. Positive for a preliminary reactive HIV test ? 04/25/2022 confirmatory test sent results pending. Case discussed with patient. Consult placed to infectious disease. 4. Recent perirectal abscess ? Patient had I&D followed by 7-day course of antibiotics 5. DVT prophylaxis ? Low risk encourage early ambulation Charges/Coding Visit Charges OBSV E&M: 03424 Subsequent observation care L2
--- NOTE | 2022-04-25 10:45 | PCM.CONS.GEN ---
Assessment & Plan Assessment/Plan (1) HIV antibody positive: PLAN: HIV initial testing (+). No h/o IVDU, does have h/o unprotected sex with male and female partners. No prior HIV testing. Recommended his get tested. Counseled him re: HIV, its spread, and role of treatment. Will order HIV viral load to confirm diagnosis, along with CD4, hiv genotype, STI screen, TB IGRA. Hep panel pending. Will follow, thank you HPI Consult Data Date of Consult: 04/25/22 HPI Narrative Reason for Consultation: hiv (+) HPI Narrative: BRENDA HOLMAN, is a 26 M who presented with about a month of not feeling well. Reports fatigue, night sweats, chills, swollen lymph node in neck, sore throat, some brief episodes of n/v/d, 30lb weight loss. Was in ED with rectal abscess, given augmentin, developed rash. No dysuria, no penile discharge. No vision changes. Denies any h/o IVDU. Reports he is with female partner, has unprotected sex with male and female partners. Prior h/o chlamydia, treated about 2 weeks ago. No prior h/o syphilis. No prior HIV testing. Admitted here, given fluids. Feeling a little better. Has not had flu shot this year, has not had most recent covid booster. Full ROS performed and neg except as noted above. [facility] Medical History Perianal abscess Allergy/AdvReac Type Severity Reaction Status Date / Time Iodinated Contrast Media Allergy Intermediate Rash Verified 04/23/22 22:22 Penicillins Allergy Hives Verified 04/23/22 22:22 Sulfa (Sulfonamide Allergy Anaphylaxis Verified 04/23/22 12:25 Antibiotics) amoxicillin [From Augmentin] AdvReac Rash, Verified 04/23/22 22:22 Diarrhea, Mentally foggy clavulanic acid AdvReac Rash, Verified 04/14/22 15:50 [From Augmentin] Diarrhea, Mentally foggy Family History (Updated 04/23/22 @ 22:[address] Da Mueller DO) Other Penicillin allergy Social History Smoking Status: Never smoker substance use type: does not use Physical Exam Const alert, oriented x3 and no apparent distress General Appearance: cooperative HEENT normocephalic and head/scalp atraumatic HEENT Narrative: No thrush Eyes PERRL and EOMs intact bilaterally Neck supple and nodes Resp normal air movement and clear to auscultation bilaterally Cardio regular rate and regular rhythm GI soft to palpation, non-tender and non-distended Extremity General Extremity: Negative for edema Skin no rashes or lesions noted Neuro CN's II-XII intact bilaterally Medical Records Data Medical Nutrition Assessment Dietitian: Malnutrition Criteria Met Start: 04/24/22 14:00 Freq: Status: Active Protocol: Document 04/24/22 14:00 (Rec: 04/24/22 14:00 [id number]) Nutrition Malnutrition Evidence of Malnutrition Exists Yes Malnutrition (severe): Acute Illness/Injury Evidenced By Suboptimal Energy Intake ( Severe),Weight Loss (Severe) Clinical Problem Acute Disease or Injury Related Malnutrition Etiology severe related to suboptimal appetite Signs/Symptoms as evidenced by 8.9% weight loss in 3 weeks and <75% PO intake of estimated energy needs for 3 weeks. Status Active Problem Recommendation Dietitian Recommendations/Changes Continue Regular diet with Ensure Plus High Protein supplements to optimize oral intakes and provide supplemental energy. Lab / Micro Data Attestation: I reviewed the patient's lab results. Result Diagrams: 04/25/22 05:50 04/25/22 05:50 Labs: Laboratory Results - last 24 hr 04/24/22 10:57: HIV 1&2 Antibody Preliminary Reactive H 04/24/22 11:51: D-Dimer Quant (PE/DVT) 0.42 04/25/22 05:50: WBC 7.6, RBC 4.65, Hgb 13.1, Hct 37.9 L, MCV 81.5, MCH 28.2, MCHC 34.6, RDW Std Deviation 39.5, RDW Coeff of Sheryl 13.2, Plt Count 210, MPV 8.7, Immature Gran % (Auto) 0.100, Neut % (Auto) 37.8 L, Lymph % (Auto) 49.5 H, [place] % (Auto) 11.8 H, Eos % (Auto) 0.1, Baso % (Auto) 0.7, Absolute Neuts (auto) 2.9, Absolute Lymphs (auto) 3.78, Nucleated RBC % 0, Atypical Lymphocytes 1+ 11/01/22 05:50: Sodium 136, Potassium 3.8, Chloride 106, Carbon Dioxide 25.0, Anion Gap 5, BUN 7, Creatinine 0.57 L, Estim Creat Clear Calc 206.34, Est GFR (MDRD) Af Amer 224, Est GFR (MDRD) Non-Af 185, BUN/Creatinine Ratio 12.3, Glucose 90, Calcium 8.2 L, Phosphorus 2.8, Magnesium 2.2, Total Bilirubin 0.50, Direct Bilirubin 0.15, AST 59 H, ALT 111 H, Alkaline Phosphatase 42 L, Total Protein 6.7, Albumin 3.1 L, Globulin 3.6 Radiology Impression Echocardiogram 04/23/22 22:28 Interpretation Summary Normal LV size. Left ventricular systolic function is normal. The estimated ejection fraction is 60 %. Structurally normal valves. Ordering Physician: Da Mueller Referring Physician: NO PCP Performed By: Yenni Ramos RCS
--- NOTE | 2022-04-25 11:37 | DS.PCM_ITS ---
Providers Date of Admission: 04/23/22 Date of Discharge: 04/25/22 Primary Care Physician: Martha Primary Care Phys Consultations 04/25/22 07:42 Consult: Infectious Disease Routine Consulting Provider: Lj Minor Reason for Consult: Preliminary reactive HIV test EMERGENT Consult: No MD Notified: Yes Date Notified: 04/25/22 Time Notified: 08:07 Method of Notification: Answering Service Reason For Visit: SINUS TACHYCARDIA Diagnosis Discharge Diagnosis (1) HIV antibody positive: Status: Acute Code(s): Z21 - Asymptomatic human immunodeficiency virus [HIV] infection status Plan Patient is a 26-year-old gentleman who presented to the emergency department presented to the emergency department with increasing fatigue decreased appetite as well as unintentional weight loss for a month. Patient had apparently been seen in the emergency department with perirectal abscess had I&D done. Was treated with penicillin which he developed allergic reaction after 7 days of therapy. Patient was found to have significant tachycardia on admission admitted to monitored bed for further management 1. Sinus tachycardia ? Etiology not clear at this point. Apart from abnormal LFTs on admission patient work-up was essentially unremarkable. Has been admitted to telemetry for continuous monitoring. Please rapid mono and COVID and influenza in the ED were negative. Assay sent for HIV CMV as well as acute hepatitis panel started on IV fluids. Echo ordered to rule out cardiomyopathy. Patient's family requesting cardiology consultation at this point did explain to patient and family cardiology consult will be obtained if any abnormalities found on his echo. Patient has apparently been taking DayQuil (phenylephrine) on a daily basis and was felt on admission that this could be the cause of his persistent tachycardia ? 04/25/2022 2D echo unremarkable 2. Abnormal LFTs ? Etiology not clear requested for acute hepatitis panel ? 04/25/2022 patient LFTs trending in the right direction 3. Positive for a preliminary reactive HIV test ? 04/25/2022 confirmatory test sent results pending. Case discussed with patient. Consult placed to infectious disease. Patient was seen in consultation by Dr. Minor patient will follow-up as outpatient 4. Recent perirectal abscess ? Patient had I&D followed by 7-day course of antibiotics 5. DVT prophylaxis ? Low risk encourage early ambulation Medications at Discharge Home Medications metoprolol succinate 25 mg tablet,extended release 24 hr 25 mg PO DAILY 30 days #30 tabs 04/25/22 Hospital Course Summary of Care Provided Minutes Spent on Discharge: 35 Physical Exam Narrative GENERAL: cooperative HEENT: Atraumatic; normocephalic EYES; Anicteric, Normal Conjunctiva NECK; supple, normal thyroid, RESPIRATORY: Diminished to auscultation CARDIOVASCULAR: Regular S1 S2, tachycardic GI: soft, normoactive bowel sounds, : No Renal angle tenderness; EXTREMITIES: No edema, no clubbing, MUSCULOSKELETAL: no muscle wasting NEURO: Awake; no lateralizing signs. SKIN: No Rash PSYCH; Flat affect Medical Records Data Medical Nutrition Assessment Dietitian: Malnutrition Criteria Met Start: 04/24/22 14:00 Freq: Status: Active Protocol: Document 04/24/22 14:00 (Rec: 04/24/22 14:00 [id number]) Nutrition Malnutrition Evidence of Malnutrition Exists Yes Malnutrition (severe): Acute Illness/Injury Evidenced By Suboptimal Energy Intake ( Severe),Weight Loss (Severe) Clinical Problem Acute Disease or Injury Related Malnutrition Etiology severe related to suboptimal appetite Signs/Symptoms as evidenced by 8.9% weight loss in 3 weeks and <75% PO intake of estimated energy needs for 3 weeks. Status Active Problem Recommendation Dietitian Recommendations/Changes Continue Regular diet with Ensure Plus High Protein supplements to optimize oral intakes and provide supplemental energy. Weight / BMI Weight Weight: 82.6 kg Body Mass Index (BMI) 26.1 ABG / Lab / Microbiology Data Result Diagrams: 04/25/22 05:50 04/25/22 05:50 Laboratory: Laboratory Results - last 24 hr 04/24/22 10:57: HIV 1&2 Antibody Preliminary Reactive H 04/24/22 11:51: D-Dimer Quant (PE/DVT) 0.42 04/25/22 05:50: WBC 7.6, RBC 4.65, Hgb 13.1, Hct 37.9 L, MCV 81.5, MCH 28.2, MCHC 34.6, RDW Std Deviation 39.5, RDW Coeff of Sheryl 13.2, Plt Count 210, MPV 8.7 , Immature Gran % (Auto) 0.100, Neut % (Auto) 37.8 L, Lymph % (Auto) 49.5 H, [place] % (Auto) 11.8 H, Eos % (Auto) 0.1, Baso % (Auto) 0.7, Absolute Neuts (auto) 2.9, Absolute Lymphs (auto) 3.78, Nucleated RBC % 0, Atypical Lymphocytes 1+ 04/25/22 05:50: Sodium 136, Potassium 3.8, Chloride 106, Carbon Dioxide 25.0, Anion Gap 5, BUN 7, Creatinine 0.57 L, Estim Creat Clear Calc 206.34, Est GFR (MDRD) Af Amer 224, Est GFR (MDRD) Non-Af 185, BUN/Creatinine Ratio 12.3, Glucose 90, Calcium 8.2 L, Phosphorus 2.8, Magnesium 2.2, Total Bilirubin 0.50, Direct Bilirubin 0.15, AST 59 H, ALT 111 H, Alkaline Phosphatase 42 L, Total Protein 6.7, Albumin 3.1 L, Globulin 3.6 Microbiology: Microbiology 04/23/22 23:40 Mucosa - Nasopharyngeal Respiratory Panel (PCR) - Final 04/23/22 14:50 Nasal Secretion SARS-CoV-2 & FLU Antigen (Rapid) - Final Radiography Diagnostic Testing: Radiology Impression Echocardiogram 04/23/22 22:28 Interpretation Summary Normal LV size. Left ventricular systolic function is normal. The estimated ejection fraction is 60 %. Structurally normal valves. Ordering Physician: Da Mueller Referring Physician: MARTHA PCP Performed By: Yenni Ramos RCS D/C Instructions Discharge Diet: No restrictions Discharge Activity: Return to Normal Activity Call your doctor if you observe: Fever of 101 or Higher, Shortness of breath, Fainting spells and Chest pain Meaningful Use Info Meaningful Use Diagnoses (Choose all that apply): None applicable Discharge Plan Admission Admit Date/Time: 04/23/22 22:19 Attending Provider: Josh Bishop Primary Care Provider: Care Physician,No Primary Consulting Providers: Da Mueller ; Josh Bishop ; Lj Minor Discharge Orders/Prescriptions Prescriptions: New metoprolol succinate 25 mg Tablet Extended Release 24 Hr 25 mg PO DAILY 30 Days Qty: 30 0RF Referrals / Follow Up: Lj Minor MD [Med Staff - Active Staff] - In 1 Week Care Physician,No Primary [Primary Care Provider] - Disposition Disposition (needs filled in before D/C Order can be placed): Home, Self Care Charges/Coding Visit Charges OBSV E&M: 13463 Observation care discharge
[2022-04-25] MEDS: Metoprolol(XL)Succ 25 MG Tablet PO (11:47)
[2022-04-25] MEDS: Metoprolol Tartrate 5 MG/5 ML Vial IV (11:48)
--- NOTE | 2022-04-25 11:54 | CASEMGMT ---
Pt is up ad jan/independent in room and states no concerns with going home at discharge. SStwicho DELUNA CM
[2022-04-25 12:00] LABS: Hepatitis B Surface Antibody Non-Reactive
[2022-04-25 12:15] LABS: Syphilis Antibodies Non-reactive
--- NOTE | 2022-04-25 13:42 | PHA.DC.MC ---
Pharmacy Service has performed discharge medication reconciliation and counseling for this patient. 1. METOPROLOL SUCCINATE 25MG PO DAILY The patient's discharge medication list was reviewed for discrepancies and discrepancies were resolved. Home Medications metoprolol succinate 25 mg tablet,extended release 24 hr 25 mg PO DAILY 30 days #30 tabs 04/25/22 The patient was counseled on the following discharge medications and changes in medications for homegoing were reviewed. The Reason for Use, instructions for use, and potential side effects were reviewed for all new medications. The patient's questions regarding all of their medications were answered. The patient was able to verbally demonstrate an understanding of their discharge medications.
[2022-04-25 14:00] LABS: Chlamydia Trachomatis by PCR Negative (Negative); Neisserai gonorrhoeae by PCR Negative (Negative); Probe Check PASS; Sample Adequacy Control PASS; Specimen Processing Control PASS
[2022-04-25] MEDS: FLU VACC QS2022-23(6MOS UP)/PF 60 MCG/0.5 ML SYRINGE IM (14:23)
--- NOTE | 2022-04-25 14:28 | NURSING ---
Vaccine Information Sheet given to pt for both Influenza & Covid booster at this time.
[2022-04-25 16:35] LABS: ANTINUCLEAR ANTIBODIES DIRECT Negative (Negative)
[2022-04-25 17:11] LABS: CMV Acute Antibody IgM 52.9 AU/mL (0.0-29.9); EBV Acute VCA IgM 85.8 U/mL (0.0-35.9); EBV Nuclear Antigen IgG 81.8 U/mL (0.0-17.9)
[2022-04-26 13:07] LABS: Absolute CD4 Helper 318 /uL (359-1519); Basophils (Absolute) 0.1 x10E3/uL (0.0-0.2); Eosinophils 0 % (Not Estab.); Eosinophils (Absolute) 0 x10E3/uL (0.0-0.4); Hemoglobin 14.1 g/dL (13.0-17.7); Immature Granulocytes 0 % (Not Estab.); Immature Granulocytes Absolute 0 x10E3/uL (0.0-0.1); Lymphs 44 % (Not Estab.); MCH 28.3 pg (26.6-33.0); MCHC 35.3 g/dL (31.5-35.7); MCV 80 fL (79-97); Monocytes 11 % (Not Estab.); Monocytes (Absolute) 0.7 x10E3/uL (0.1-0.9); Neutrophils 44 % (Not Estab.); Percent % CD4 Pos. Lymph. 10.6 % (30.8-58.5); Platelets 251 x10E3/uL (150-450); RBC Count 4.99 x10E6/uL (4.14-5.80); RDW 13.3 % (11.6-15.4); WBC Count 6.8 x10E3/uL (3.4-10.8)
[2022-04-27 16:10] LABS: HIV-1 RNA by PCR, Quant. 1740000 copies/mL (.); LOG10 HIV-1 RNA 6.241 (.)
[2022-04-27 20:08] LABS: QNTFERON TB Mitogen Value > 10.00 IU/mL (.); QNTFERON TB Nil Value 0.07 IU/mL (.); QNTFERON TB1+ Ag Value 0.09 IU/mL (.); QNTFERON TB2+ Ag Value 0.09 IU/mL (.)
[2022-04-29 21:24] LABS: QNTIFERON TB Positive Criteria Negative (Negative)
== END 2022-04-25 11:39 | disposition home or self-care (01) ==
LOC: ED 22:32 → PCU 22:39
PROVIDERS: Internal Medicine Infectious Disease; Emergency Provider Emergency Medicine; Visit Provider Internal Medicine
DX: R00.0 Tachycardia, unspecified (principal); Z21 Asymptomatic human immunodeficiency virus [HIV] infection status; R53.81 Other malaise; Z20.822 Contact with and (suspected) exposure to COVID-19; L50.0 Allergic urticaria; T36.0X5D Adverse effect of penicillins, subsequent encounter; Z87.438 Personal history of other diseases of male genital organs; Z87.19 Personal history of other diseases of the digestive system; Z23 Encounter for immunization
CPT/HCPCS: 0124A; 36415; 71275; 74177; 80048; 80053; 80074; 80076; 80307; 83605; 83735; 84100; 84443; 84484; 85025; 85379; 86038; 86225; 86235; 86308; 86361; 86480; 86645; 86664; 86665; 86703; 86706; 86780; 87428; 87491; 87536; 87591; 87633; 91312; 93005; 93306; 96361; 96374; 96375; 97802; 99218; 99285; J7030; Q9967; 90686; A4216; G0378; J0153

== ENCOUNTER 2022-05-30 21:47 | Emergency (ER) | payer OTHER, SELFPAY ==
[2022-05-30 21:48] VITALS: BP 132/93; PULSE 98; RESP 15; TEMP 37; O2SAT 100; BMI 26.6
--- NOTE | 2022-05-30 23:01 | RAD_ITS ---
STUDY: X-RAY CHEST REASON FOR EXAM: Male, 27 years old. Palpitations. TECHNIQUE: PA and lateral COMPARISON: CT chest 04/23/2022. FINDINGS: LUNGS: No apparent pneumothorax, pneumonia, pleural effusion, or edema. MEDIASTINUM, JO: Cardiac silhouette, jo and mediastinal contours are within normal limits. BONES: No acute osseous abnormality. UPPER ABDOMEN: No evidence of free air under the diaphragm. RAD/Chest PA and Lateral IMPRESSION: Negative chest radiograph. Electronically Signed: Robby Garcia MD at 23:36 EST Reading Location ID and State: [facility] / [place] Tel , Service support ,
--- NOTE | 2022-05-30 23:01 | EKG12_ITS ---
Test Reason : DYSRHYTHMIA Blood Pressure : / mmHG Vent. Rate : 087 BPM Atrial Rate : 087 BPM P-R Int : 166 ms QRS Dur : 090 ms QT Int : 364 ms P-R-T Axes : 054 073 049 degrees QTc Int : 438 ms Normal sinus rhythm Normal ECG Confirmed by LINO ZENG, LISSY ([id number]), society editor AARON VELÁZQUEZ ([id number]) on 06/01/2022 9:46:31 AM Referred By: GONZALEZ Confirmed By:LISSY HUYNH MD
[2022-05-30 23:27] VITALS: BP 121/86; PULSE 88; RESP 15; O2SAT 98
[2022-05-30 23:28] VITALS: PULSE 79
[2022-05-30] MEDS: 0.9% Normal Saline 1,000 ML 999 ML IV (23:28)
[2022-05-30 23:30] LABS: Absolute Lymphocyte Count 1.93 X10^3/uL (0.83-4.51); Basophil# 0.06 X10^3/uL; Basophil% 1.3 % (0-1); Eosinophil# 0.11 X10^3/uL; Eosinophils% 2.3 % (0-5); Hematocrit 40.9 % (40-54); Hemoglobin 14.2 g/dL (13.0-16.5); Lymphocyte # 1.93 X10^3/ul (0.83-4.51); Lymphocyte % 40.5 % (19-41); Mean Corp Hgb Conc 34.7 g/dL (32-36); Mean Corpuscular Hgb 28.5 pg (27.0-32.0); Mean Corpuscular Volume 82.1 fL (80-94); Mean Platelet Vol. 8.7 fl (6.2-12.0); Monocyte# 0.59 X10^3/uL; Monocyte% 12.4 % (0-10); NRBC Flagged by Analyzer 0 % (0-5); Neutrophil # 2.04 X10^3/uL (2.7-7.7); Neutrophil % 42.7 % (47-70); Platelet Count 306 K/mm3 (150-450); RBC Distribution Width CV 14.6 % (11.6-14.6); RBC Distribution Width SD 43.8 fl (35.1-43.9); Red Blood Count 4.98 M/mm3 (4.6-6.2); White Blood Count 4.8 K/mm3 (4.4-11.0)
[2022-05-30 23:37] LABS: Anion Gap 3 (5-15); BUN 9 mg/dL (7-18); BUN/Creat Ratio 10.7 RATIO (10-20); Calcium,Total 8.9 mg/dL (8.5-10.1); Chloride 106 mmol/L (98-107); Creatinine, Serum 0.84 mg/dL (0.70-1.30); EST Glomerular Filtration Rate 118 mL/min (>60); Est Glom Filt Rate - Afr Amer 143 mL/min (>60); Estimated Creatinine Clearance 134.43 ml/min; Glucose 100 mg/dL (74-106); Magnesium 2.6 mg/dL (1.6-2.6); Potassium 3.8 mmol/L (3.5-5.1); Sodium Level 138 mmol/L (136-145)
[2022-05-30 23:39] VITALS: BP 110/85; PULSE 77; RESP 16; O2SAT 98
--- NOTE | 2022-05-31 00:41 | EX.ED.DYSGE1 ---
HPI History of Present Illness Chief Complaint: General Illness Narrative Narrative: Patient is a 27-year-old male who states he was admitted to the hospital previously secondary to an elevated heart rate. He states he was found to just be in sinus tachycardia and was placed on once a day metoprolol. He states he was taking his medication as directed but ran out 3 to 4 days ago. He states since that time he has been having increased heart rate and sensation that its been difficult to breathe at times and secondary to this he comes in for evaluation. He denies any fevers or chills or chest pain he denies any excessive stimulant use or illicit drug use. He does state he has an appointment with his doctor tomorrow for repeat evaluation and to discuss repeat prescription. [facility] Medical History Perianal abscess Home Medications metoprolol succinate 25 mg tablet,extended release 24 hr 25 mg PO DAILY 30 days #30 tabs 04/25/22 [Rx Last Taken Unknown] Allergy/AdvReac Type Severity Reaction Status Date / Time Iodinated Contrast Media Allergy Intermediate Rash Verified 05/30/22 21:53 Penicillins Allergy Hives Verified 05/30/22 21:53 Sulfa (Sulfonamide Allergy Anaphylaxis Verified 05/30/22 21:53 Antibiotics) amoxicillin [From Augmentin] AdvReac Rash, Verified 05/30/22 21:53 Diarrhea, Mentally foggy clavulanic acid AdvReac Rash, Verified 05/30/22 21:53 [From Augmentin] Diarrhea, Mentally foggy Family History (Updated 04/23/22 @ 22:[address] Da Mueller DO) Other Penicillin allergy Social History Smoking Status: Never smoker substance use type: does not use ROS ROS ED Constitutional Constitutional ED: Denies chills or fever(s) ENT ENT ED: Denies sore throat Cardiovascular Cardiovascular: Reports racing heartbeat; Denies chest pain Respiratory/Chest Respiratory/Chest: Reports dyspnea; Denies cough Gastrointestinal Gastrointestinal: Denies abdominal pain, diarrhea, nausea or vomiting Genitourinary Genitourinary ED: Denies dysuria Musculoskeletal Musculoskeletal: Denies myalgias Integumentary Denies rash Neurologic Neurologic: Denies headache(s) Psychiatric Psychiatric: Reports anxiety Hematologic/Lymphatic Hematologic/Lymphatic: Denies easy bleeding or easy bruising EXAM Physical Exam Const Vital Signs: 05/30/22 21:48 05/30/22 22:28 05/30/22 23:27 Temperature 98.6 F Temperature Source Temporal Pulse Rate 98 88 Respiratory Rate 15 15 Respiratory Effort Normal Non-Labored Respiratory Pattern Normal Blood Pressure 132/93 H 121/86 H Blood Pressure Mean 106 97 Pulse Ox 100 98 Oxygen Delivery Method Room Air Room Air 05/30/22 23:28 05/30/22 23:39 05/31/22 01:13 Temperature Temperature Source Pulse Rate 79 77 81 Respiratory Rate 16 14 Respiratory Effort Respiratory Pattern Blood Pressure 110/85 H Blood Pressure Mean 93 Pulse Ox 98 97 Oxygen Delivery Method Room Air Positive well nourished and well developed General Appearance ED: well developed HEENT Reports moist mucous membranes Eyes PERRL and EOMs intact bilaterally General Eye ED: Negative for pale conjunctiva Neck supple and no JVD Chest Wall palpation of chest normal Resp normal respiratory effort and clear to auscultation bilaterally Cardio regular rhythm Rate: tachycardic and other Other Details: Radial pulses are plus 2 out of 4 bilaterally they are equal and symmetric Carotid pulses are equal and symmetric as well GI normal to inspection, nondistended, normoactive bowel sounds, non-tender, non-distended and no masses Auscultation: normoactive bowel sounds Palpation: soft Extremity normal to inspection Extremity Narrative: No asymmetric edema no pitting edema negative Homans' sign bilaterally Neuro oriented x3 and CN's II-XII intact bilaterally Sensorium / Orientation: alert Psych Psych Narrative: Patient has a nervous/anxious affect Skin no rashes or lesions noted MDM MDM MDM Narrative Medical decision making narrative: Patient presented to the ER mildly tachycardic and appeared anxious but otherwise in no acute distress with stable vitals. With his past history of tachycardia and the fact he did not have medication for multiple days I feel he is going to withdrawal causing rebound tachycardia. I elected to check basic labs to ensure there was no electrolyte derangement for the cause of his symptoms and blood work revealed no acute findings. EKG also showed no cardiac dysrhythmia. Chest x-ray revealed no acute lung pathology as a cause of his shortness of breath sensation. We discussed giving him IV Lopressor at this time but his heart rate reduced spontaneously to 80 and therefore did not feel this was necessary. At this time as he has no signs of cardiac dysrhythmia or electrolyte derangement or lung pathology and vitals have spontaneously improved there is no need for further work-up and he is otherwise safe for discharge Lab Data Attestation: I reviewed the patient's lab results. Labs: Laboratory Results - last 24 hr 05/30/22 05/30/22 23:15 23:15 WBC 4.8 RBC 4.98 Hgb 14.2 Hct 40.9 MCV 82.1 MCH 28.5 MCHC 34.7 RDW Std Deviation 43.8 RDW Coeff of Sheryl 14.6 Plt Count 306 MPV 8.7 Immature Gran % (Auto) 0.800 Neut % (Auto) 42.7 L Lymph % (Auto) 40.5 [place] % (Auto) 12.4 H Eos % (Auto) 2.3 Baso % (Auto) 1.3 H Absolute Neuts (auto) 2.0 Absolute Lymphs (auto) 1.93 Nucleated RBC % 0 Sodium 138 Potassium 3.8 Chloride 106 Carbon Dioxide 29.0 Anion Gap 3 L BUN 9 Creatinine 0.84 Estim Creat Clear Calc 134.43 Est GFR (MDRD) Af Amer 143 Est GFR (MDRD) Non-Af 118 BUN/Creatinine Ratio 10.7 Glucose 100 Calcium 8.9 Magnesium 2.6 Radiography Diagnostic Testing: Clinical Impression(s) from Imaging Studies Chest X-Ray 05/30/22 23:01 IMPRESSION: Negative chest radiograph. Electronically Signed: Robby Garcia MD at 23:36 EST Reading Location ID and State: [address] [place] [address] Tel , Service support , 2 view chest x-ray as interpreted by the emergency medicine physician reveals no acute infiltrate pneumothorax or pleural effusion Discharge Plan Triage Chief Complaint: General Illness ED Provider: Isrrael Weeks Dx/Rx/DC Orders Clinical Impression: Sinus tachycardia Instructions: Your Heart's Electrical System, Understanding Tachycardia Prescriptions: No Action metoprolol succinate 25 mg Tablet Extended Release 24 Hr 25 mg PO DAILY 30 Days Qty: 30 0RF Primary Care Provider: Yolanda Voss NP Referrals: Yolanda Voss NP, ASSISTANT FOOD SERVICE DIRECTOR-C [Primary Care Provider] - Disposition Disposition: Home, Self Care Discharge Date/Time: 05/31/22 01:13
[2022-05-31] MEDS: Metoprolol(XL)Succ 25 MG Tablet PO (01:12)
[2022-05-31 01:13] VITALS: PULSE 81; RESP 14; O2SAT 97
== END 2022-05-31 01:13 | disposition home or self-care (01) ==
PROVIDERS: Emergency Provider Emergency Medicine; PCP Nurse Practitioner Family; Visit Provider Emergency Medicine
DX: R00.0 Tachycardia, unspecified (principal); R06.02 Shortness of breath
CPT/HCPCS: 71046; 80048; 83735; 85025; 93005; 96360; 99284; J7030; A4216

== ENCOUNTER → 2022-06-06 | Outpatient (CLI) | payer OTHER, SELFPAY ==
[2022-06-06 12:10] LABS: Bacteria 0 SEEN /hpf (None Seen); Mucous, Urine 0 SEEN /hpf (<or=2+); Red Blood Cells-Urine 0 SEEN /hpf (0-5); Squamous Epithelial Cells - UA 0 SEEN /hpf (0-5); White Blood Cells 0 SEEN /hpf (0-5)
[2022-06-06 12:44] LABS: Hematocrit 44.6 % (40-54); Hemoglobin 14.6 g/dL (13.0-16.5); Mean Corp Hgb Conc 32.7 g/dL (32-36); Mean Corpuscular Hgb 27.6 pg (27.0-32.0); Mean Corpuscular Volume 84.3 fL (80-94); Mean Platelet Vol. 9.1 fl (6.2-12.0); Platelet Count 259 K/mm3 (150-450); RBC Distribution Width CV 15.1 % (11.6-14.6); RBC Distribution Width SD 46.2 fl (35.1-43.9); Red Blood Count 5.29 M/mm3 (4.6-6.2)
[2022-06-06 12:46] LABS: Color, Urine Yellow (Yellow); Glucose, Dipstick Normal (Normal); Ketone-Dipstick 5 mg/dl (Negative); Leukocyte Esterase-Dipstick Negative /ul (Negative); Nitrite-Dipstick Negative (Negative); Occult Blood-Urine Negative /ul (Negative); Protein-Dipstick 15 mg/dl (Negative); Specific Gravity, Urine 1.015 (1.002-1.030); Urine Bilirubin Dipstick Negative (Negative); Urine Clarity Clear (Clear); Urine Urobilinogen Normal (Normal)
[2022-06-06 14:06] LABS: AST(SGOT) 16 U/L (15-37); Alanine Aminotransfer ALT/SGPT 33 U/L (16-61); Alkaline Phosphatase 61 U/L (45-117); Anion Gap 5 (5-15); BUN 11 mg/dL (7-18); BUN/Creat Ratio 14.1 RATIO (10-20); Bilirubin, Direct 0.17 mg/dL (0.00-0.30); Calcium,Total 8.9 mg/dL (8.5-10.1); Chloride 104 mmol/L (98-107); Cholesterol 185 mg/dL (200); Creatinine, Serum 0.78 mg/dL (0.70-1.30); EST Glomerular Filtration Rate 129 mL/min (>60); Est Glom Filt Rate - Afr Amer 156 mL/min (>60); Glucose 93 mg/dL (74-106); High Density Lipoprotein 43 mg/dL; Sodium Level 138 mmol/L (136-145); Triglycerides 80 mg/dL; Very Low Density Lipoprotein 16 mg/dL (5-40)
[2022-06-07 14:08] LABS: Absolute CD4 Helper 461 /uL (359-1519); Basophils (Absolute) 0 x10E3/uL (0.0-0.2); Eosinophils 8 % (Not Estab.); Eosinophils (Absolute) 0.5 x10E3/uL (0.0-0.4); Hematocrit 42.4 % (37.5-51.0); Hemoglobin 14.4 g/dL (13.0-17.7); Immature Granulocytes 0 % (Not Estab.); Lymphs 28 % (Not Estab.); Lymphs (Absolute) 1.6 x10E3/uL (0.7-3.1); MCH 27.7 pg (26.6-33.0); MCV 82 fL (79-97); Monocytes 9 % (Not Estab.); Monocytes (Absolute) 0.5 x10E3/uL (0.1-0.9); Neutrophils 54 % (Not Estab.); Neutrophils (Absolute) 3.1 x10E3/uL (1.4-7.0); Percent % CD4 Pos. Lymph. 28.8 % (30.8-58.5); Platelets 279 x10E3/uL (150-450); RDW 15.3 % (11.6-15.4); WBC Count 5.8 x10E3/uL (3.4-10.8)
[2022-06-08 10:33] LABS: Immature Granulocytes Absolute 0 x10E3/uL (0.0-0.1)
[2022-06-09 10:33] LABS: HIV-1 RNA by PCR, Quant. 180 copies/mL (.); LOG10 HIV-1 RNA 2.255 (.)
== END | disposition home or self-care (01) ==
LOC: LAB 12:07
PROVIDERS: PCP Nurse Practitioner Family; Visit Provider Internal Medicine Infectious Disease
DX: B20 Human immunodeficiency virus [HIV] disease (principal)
CPT/HCPCS: 36415; 80048; 80061; 80076; 81001; 85027; 86361; 87536

== ENCOUNTER → 2022-10-02 | Outpatient (CLI) | payer OTHER, MEDICAID, SELFPAY ==
[2022-10-02 10:24] LABS: Hematocrit 43.4 % (40-54); Hemoglobin 14.8 g/dL (13.0-16.5); Mean Corp Hgb Conc 34.1 g/dL (32-36); Mean Corpuscular Hgb 29.2 pg (27.0-32.0); Mean Corpuscular Volume 85.8 fL (80-94); Mean Platelet Vol. 8.8 fl (6.2-12.0); Platelet Count 287 K/mm3 (150-450); RBC Distribution Width CV 13.3 % (11.6-14.6); RBC Distribution Width SD 41.2 fl (35.1-43.9); Red Blood Count 5.06 M/mm3 (4.6-6.2); White Blood Count 6.9 K/mm3 (4.4-11.0)
[2022-10-02 10:49] LABS: Anion Gap 2 (5-15); BUN 16 mg/dL (7-18); BUN/Creat Ratio 16.4 RATIO (10-20); Calcium,Total 8.7 mg/dL (8.5-10.1); Chloride 106 mmol/L (98-107); Cholesterol 190 mg/dL (200); Creatinine, Serum 0.97 mg/dL (0.70-1.30); EST Glomerular Filtration Rate 100 mL/min (>60); Est Glom Filt Rate - Afr Amer 120 mL/min (>60); Glucose 90 mg/dL (74-106); High Density Lipoprotein 55 mg/dL; Potassium 3.9 mmol/L (3.5-5.1); Sodium Level 138 mmol/L (136-145); Triglycerides 86 mg/dL; Very Low Density Lipoprotein 17 mg/dL (5-40)
[2022-10-02 11:07] LABS: Syphilis Antibodies Non-reactive
[2022-10-03 15:08] LABS: Absolute CD4 Helper 740 /uL (359-1519); Basophils (Absolute) 0 x10E3/uL (0.0-0.2); Eosinophils 7 % (Not Estab.); Eosinophils (Absolute) 0.4 x10E3/uL (0.0-0.4); Hematocrit 41.3 % (37.5-51.0); Hemoglobin 14.3 g/dL (13.0-17.7); Immature Granulocytes 0 % (Not Estab.); Lymphs 25 % (Not Estab.); Lymphs (Absolute) 1.7 x10E3/uL (0.7-3.1); MCH 29.3 pg (26.6-33.0); MCHC 34.6 g/dL (31.5-35.7); MCV 85 fL (79-97); Monocytes 12 % (Not Estab.); Monocytes (Absolute) 0.8 x10E3/uL (0.1-0.9); Neutrophils 55 % (Not Estab.); Neutrophils (Absolute) 3.6 x10E3/uL (1.4-7.0); Percent % CD4 Pos. Lymph. 43.5 % (30.8-58.5); Platelets 300 x10E3/uL (150-450); RBC Count 4.88 x10E6/uL (4.14-5.80); RDW 13.5 % (11.6-15.4); WBC Count 6.5 x10E3/uL (3.4-10.8)
[2022-10-03 19:46] LABS: HIV-1 RNA by PCR, Quant. 40 copies/mL (.); LOG10 HIV-1 RNA 1.602 (.)
[2022-10-03 19:47] LABS: Immature Granulocytes Absolute 0 x10E3/uL (0.0-0.1)
== END | disposition home or self-care (01) ==
LOC: LAB 09:39
PROVIDERS: PCP Nurse Practitioner Family; Referring Provider Internal Medicine Infectious Disease; Visit Provider Internal Medicine Infectious Disease
DX: B20 Human immunodeficiency virus [HIV] disease (principal)
CPT/HCPCS: 36415; 80048; 80061; 85027; 86361; 86780; 87536

== ENCOUNTER → 2023-04-16 | Outpatient (CLI) | payer OTHER, MEDICAID, SELFPAY ==
[2023-04-16 10:22] LABS: Bacteria 0 SEEN /hpf (None Seen); Red Blood Cells-Urine 0 SEEN /hpf (0-5); Squamous Epithelial Cells - UA 0 SEEN /hpf (0-5); White Blood Cells 0 SEEN /hpf (0-5)
[2023-04-16 10:48] LABS: Hemoglobin 15.5 g/dL (13.0-16.5); Mean Corp Hgb Conc 33.7 g/dL (32-36); Mean Corpuscular Hgb 29.4 pg (27.0-32.0); Mean Corpuscular Volume 87.1 fL (80-94); Mean Platelet Vol. 8.8 fl (6.2-12.0); Platelet Count 299 K/mm3 (150-450); RBC Distribution Width CV 12.7 % (11.6-14.6); RBC Distribution Width SD 40.1 fl (35.1-43.9); Red Blood Count 5.28 M/mm3 (4.6-6.2); White Blood Count 8.1 K/mm3 (4.4-11.0)
[2023-04-16 10:52] LABS: Color, Urine Yellow (Yellow); Glucose, Dipstick Normal (Normal); Ketone-Dipstick Negative (Negative); Leukocyte Esterase-Dipstick Negative /ul (Negative); Nitrite-Dipstick Negative (Negative); Occult Blood-Urine Negative /ul (Negative); Protein-Dipstick 15 mg/dl (Negative); Urine Bilirubin Dipstick Negative (Negative); Urine Clarity Clear (Clear); Urine Urobilinogen Normal (Normal)
[2023-04-16 11:04] LABS: Mucous, Urine RARE /hpf (<or=2+)
[2023-04-16 11:17] LABS: Anion Gap 4 (5-15); BUN 19 mg/dL (7-18); Calcium,Total 8.9 mg/dL (8.5-10.1); Chloride 107 mmol/L (98-107); Creatinine, Serum 0.95 mg/dL (0.70-1.30); EST Glomerular Filtration Rate 102 mL/min (>60); Est Glom Filt Rate - Afr Amer 123 mL/min (>60); Glucose 103 mg/dL (74-106); Potassium 4.1 mmol/L (3.5-5.1); Sodium Level 140 mmol/L (136-145)
[2023-04-16 11:25] LABS: Syphilis Antibodies Non-reactive
[2023-04-17 15:08] LABS: Absolute CD4 Helper 777 /uL (359-1519); Basophils (Absolute) 0 x10E3/uL (0.0-0.2); Eosinophils 7 % (Not Estab.); Eosinophils (Absolute) 0.5 x10E3/uL (0.0-0.4); Hematocrit 45.2 % (37.5-51.0); Hemoglobin 15.6 g/dL (13.0-17.7); Immature Granulocytes 0 % (Not Estab.); Immature Granulocytes Absolute 0 x10E3/uL (0.0-0.1); Lymphs 22 % (Not Estab.); Lymphs (Absolute) 1.7 x10E3/uL (0.7-3.1); MCH 29.9 pg (26.6-33.0); MCHC 34.5 g/dL (31.5-35.7); MCV 87 fL (79-97); Monocytes 13 % (Not Estab.); Neutrophils 57 % (Not Estab.); Neutrophils (Absolute) 4.3 x10E3/uL (1.4-7.0); Percent % CD4 Pos. Lymph. 45.7 % (30.8-58.5); Platelets 296 x10E3/uL (150-450); RBC Count 5.22 x10E6/uL (4.14-5.80); WBC Count 7.5 x10E3/uL (3.4-10.8)
[2023-04-17 22:07] LABS: HIV-1 RNA by PCR, Quant. < 20 copies/mL (.)
== END | disposition home or self-care (01) ==
LOC: LAB 09:55
PROVIDERS: PCP Nurse Practitioner Family; Referring Provider Internal Medicine Infectious Disease; Visit Provider Internal Medicine Infectious Disease
DX: B20 Human immunodeficiency virus [HIV] disease (principal)
CPT/HCPCS: 36415; 80048; 81001; 85027; 86361; 86780; 87491; 87536; 87591

== ENCOUNTER → 2023-11-24 | Outpatient (CLI) | payer MEDICAID, SELFPAY ==
[2023-11-24 12:01] LABS: Hematocrit 44.5 % (40-54); Hemoglobin 15.1 g/dL (13.0-16.5); Mean Corp Hgb Conc 33.9 g/dL (32-36); Mean Corpuscular Hgb 29.3 pg (27.0-32.0); Mean Corpuscular Volume 86.4 fL (80-94); Mean Platelet Vol. 9.4 fl (6.2-12.0); Platelet Count 295 K/mm3 (150-450); RBC Distribution Width CV 12.3 % (11.6-14.6); RBC Distribution Width SD 39.1 fl (35.1-43.9); Red Blood Count 5.15 M/mm3 (4.6-6.2); White Blood Count 6.2 K/mm3 (4.4-11.0)
[2023-11-24 12:18] LABS: Anion Gap 6 (5-15); BUN 21 mg/dL (7-18); BUN/Creat Ratio 19.6 RATIO (10-20); Calcium,Total 8.7 mg/dL (8.5-10.1); Chloride 105 mmol/L (98-107); Creatinine, Serum 1.07 mg/dL (0.70-1.30); EST Glomerular Filtration Rate 88 mL/min (>60); Est Glom Filt Rate - Afr Amer 107 mL/min (>60); Glucose 99 mg/dL (74-106); Sodium Level 137 mmol/L (136-145)
[2023-11-26 16:09] LABS: Absolute CD4 Helper 920 /uL (359-1519); Basophils (Absolute) 0 x10E3/uL (0.0-0.2); Eosinophils 8 % (Not Estab.); Eosinophils (Absolute) 0.5 x10E3/uL (0.0-0.4); Hematocrit 43.8 % (37.5-51.0); Hemoglobin 14.7 g/dL (13.0-17.7); Immature Granulocytes 0 % (Not Estab.); Immature Granulocytes Absolute 0 x10E3/uL (0.0-0.1); Lymphs 32 % (Not Estab.); MCH 28.7 pg (26.6-33.0); MCHC 33.6 g/dL (31.5-35.7); MCV 85 fL (79-97); Monocytes 11 % (Not Estab.); Monocytes (Absolute) 0.7 x10E3/uL (0.1-0.9); Neutrophils 48 % (Not Estab.); Neutrophils (Absolute) 3.1 x10E3/uL (1.4-7.0); Platelets 287 x10E3/uL (150-450); RBC Count 5.13 x10E6/uL (4.14-5.80); RDW 12.9 % (11.6-15.4); WBC Count 6.2 x10E3/uL (3.4-10.8)
[2023-11-27 02:07] LABS: HIV-1 RNA by PCR, Quant. < 20 copies/mL (.)
== END | disposition home or self-care (01) ==
LOC: LAB 11:15
PROVIDERS: PCP Nurse Practitioner Family; Referring Provider Internal Medicine Infectious Disease; Visit Provider Internal Medicine Infectious Disease
DX: B20 Human immunodeficiency virus [HIV] disease (principal)
CPT/HCPCS: 36415; 80048; 85027; 86361; 87536

== ENCOUNTER → 2024-06-26 | Outpatient (CLI) | payer MEDICAID, SELFPAY ==
[2024-06-26 12:23] LABS: Hematocrit 46.5 % (40-54); Hemoglobin 15.4 g/dL (13.0-16.5); Mean Corp Hgb Conc 33.1 g/dL (32-36); Mean Corpuscular Hgb 28.6 pg (27.0-32.0); Mean Corpuscular Volume 86.3 fL (80-94); Mean Platelet Vol. 9.1 fl (6.2-12.0); Platelet Count 343 K/mm3 (150-450); RBC Distribution Width CV 12.8 % (11.6-14.6); RBC Distribution Width SD 39.9 fl (35.1-43.9); Red Blood Count 5.39 M/mm3 (4.6-6.2); White Blood Count 6.5 K/mm3 (4.4-11.0)
[2024-06-26 12:47] LABS: Anion Gap 2 (5-15); BUN 17 mg/dL (7-18); BUN/Creat Ratio 18.1 RATIO (10-20); Calcium,Total 9.2 mg/dL (8.5-10.1); Chloride 106 mmol/L (98-107); Creatinine, Serum 0.94 mg/dL (0.70-1.30); EST Glomerular Filtration Rate 102 mL/min (>60); Est Glom Filt Rate - Afr Amer 124 mL/min (>60); Glucose 97 mg/dL (74-106); Potassium 4.4 mmol/L (3.5-5.1); Sodium Level 138 mmol/L (136-145)
[2024-06-26 14:52] LABS: Syphilis Antibodies Non-reactive
[2024-06-27 15:07] LABS: Absolute CD4 Helper 758 /uL (359-1519); Basophils (Absolute) 0 x10E3/uL (0.0-0.2); Eosinophils 6 % (Not Estab.); Eosinophils (Absolute) 0.4 x10E3/uL (0.0-0.4); Hematocrit 47.2 % (37.5-51.0); Hemoglobin 15.7 g/dL (13.0-17.7); Immature Granulocytes 0 % (Not Estab.); Immature Granulocytes Absolute 0 x10E3/uL (0.0-0.1); Lymphs 28 % (Not Estab.); Lymphs (Absolute) 1.8 x10E3/uL (0.7-3.1); MCH 28.7 pg (26.6-33.0); MCHC 33.3 g/dL (31.5-35.7); MCV 86 fL (79-97); Monocytes 10 % (Not Estab.); Monocytes (Absolute) 0.6 x10E3/uL (0.1-0.9); Neutrophils 55 % (Not Estab.); Neutrophils (Absolute) 3.5 x10E3/uL (1.4-7.0); Percent % CD4 Pos. Lymph. 42.1 % (30.8-58.5); Platelets 348 x10E3/uL (150-450); RBC Count 5.47 x10E6/uL (4.14-5.80); RDW 12.4 % (11.6-15.4); WBC Count 6.5 x10E3/uL (3.4-10.8)
[2024-06-28 03:06] LABS: HIV-1 RNA by PCR, Quant. < 20 copies/mL (.)
== END | disposition home or self-care (01) ==
LOC: LAB 11:52
PROVIDERS: PCP Nurse Practitioner Family; Referring Provider Internal Medicine Infectious Disease; Visit Provider Internal Medicine Infectious Disease
DX: Z21 Asymptomatic human immunodeficiency virus [HIV] infection status (principal)
CPT/HCPCS: 36415; 80048; 85027; 86361; 86780; 87536